=== PATIENT | female | born 1970 | race Caucasian/White ===

== ENCOUNTER → 2018-01-30 10:55 | Outpatient (CLI) | payer BC, SELFPAY ==
--- NOTE | 2018-01-30 10:58 | BI_ITS ---
MAMMOGRAPHY - BILATERAL SCREENING REASON FOR EXAM: Female, 47 years old. Routine annual screening examination. PERTINENT HISTORY: Non-contributory. TECHNIQUE: Digital bilateral breast kofi (3D mammographic acquisition) in the CC and MLO projections. 2-D mediolateral oblique (MLO) and craniocaudad (CC) views of both breasts were obtained. CAD: Full Field Digital Mammography with Computer Added Detection was performed. COMPARISON: Comparison is made with prior study dated November 10, 2016. FINDINGS: Breast Composition: The breasts are heterogeneously dense, which may obscure small masses. There are no dominant masses or suspicious calcifications. There now is evidence of a 6 mm well-defined nodule in the medial retroareolar region of the left breast. Correlation with ultrasound is recommended. No other significant abnormalities are identified. BI/SCREENING MAMM (CAD), BILAT IMPRESSION: 6 mm well-defined nodule in the left breast as described. Correlation with ultrasound is recommended. ASSESSMENT CATEGORY: BIRADS Category 0: Incomplete. Need additional imaging evaluation. A letter regarding these results will be sent to the patient by the facility within 30 days. Approximately 10% of breast cancers are not detected by mammography. A normal mammogram should not delay biopsy of a clinically suspicious abnormality. [id number] Electronically Signed: Josiah Garcia MD at 12:51 EDT Tel [phone], Service support ,
== END ==
PROVIDERS: Visit Provider Obstetrics & Gynecology
DX: Z12.31 Encounter for screening mammogram for malignant neoplasm of breast (principal)
CPT/HCPCS: 77063; 77067

== ENCOUNTER → 2018-02-01 10:29 | Outpatient (CLI) | payer BC, SELFPAY ==
--- NOTE | 2018-02-01 10:36 | US_ITS ---
STUDY: ULTRASOUND BREAST - LEFT REASON FOR EXAM: Female, 47 years old. Abnormal screening mammogram. TECHNIQUE: Axial and longitudinal images of the LEFT breast were performed with a high resolution ultrasound transducer. COMPARISON: Comparison is made with prior mammogram dated January 30, 2018. FINDINGS: LEFT Breast: The mammographic abnormality corresponds to 8 8 mm x 8 mm x 4 mm well-defined hypoechoic nodule at the 10:00 position in the breast at 1 cm from the nipple. This most likely represents a small lymph node. US/Breast Limited Unilateral IMPRESSION: The mammographic abnormality corresponds to a small benign-appearing lymph node. Routine mammographic follow-up is recommended. ASSESSMENT CATEGORY: BIRADS Category 2: Benign. A letter regarding these results will be sent to the patient by the facility within 30 days. Electronically Signed: Josiah Garcia MD at 11:57 EDT Tel [phone], Service support ,
== END ==
PROVIDERS: Visit Provider Obstetrics & Gynecology
DX: N63.42 Unspecified lump in left breast, subareolar (principal)
CPT/HCPCS: 76642

== ENCOUNTER 2020-02-09 13:57 | Emergency (ER) | payer BC, SELFPAY ==
[2020-02-09 13:58] VITALS: BP 129/81; PULSE 113; RESP 16; TEMP 36.2; O2SAT 100; BMI 20.5
[2020-02-09] MEDS: 0.9% Normal Saline 1,000 ML 1000 ML IV (14:22)
[2020-02-09 14:34] LABS: Red Blood Cells-Urine 0 SEEN /hpf (0-5)
[2020-02-09 14:34] LABS: Hematocrit 41.4 % (37-47); Hemoglobin 13.2 g/dL (12.0-15.0); Mean Corp Hgb Conc 31.9 g/dL (32-36); Mean Corpuscular Hgb 28.4 pg (27.0-32.0); Mean Corpuscular Volume 89.2 fL (81-99); Mean Platelet Vol. 9.5 fl (6.2-12.0); POSITIVE MORPHOLOGY YES; Platelet Count 536 K/mm3 (150-450); RBC Distribution Width CV 12.7 % (11.6-14.6); RBC Distribution Width SD 41.8 fl (35.1-43.9); Red Blood Count 4.64 M/mm3 (4.2-5.4)
[2020-02-09 14:35] LABS: Color, Urine Yellow (Yellow); Glucose, Dipstick Normal (Normal); Leukocyte Esterase-Dipstick Negative /ul (Negative); Nitrite-Dipstick Negative (Negative); Occult Blood-Urine 10 /ul (Negative); Protein-Dipstick 30 mg/dl (Negative); Specific Gravity, Urine 1.025 (1.002-1.030); Urine Bilirubin Dipstick Negative (Negative); Urine Clarity Sl. Cloudy (Clear); Urine Urobilinogen Normal (Normal)
[2020-02-09 14:49] LABS: Ketone-Dipstick 150 mg/dl (Negative)
[2020-02-09 14:50] LABS: ALB/GLOB Ratio 0.7 RATIO (0.9-2.4); AST(SGOT) 17 U/L (15-37); Alanine Aminotransfer ALT/SGPT 21 U/L (13-56); Alkaline Phosphatase 92 U/L (45-117); Anion Gap 12 (5-15); BUN 6 mg/dL (7-18); BUN/Creat Ratio 7.8 RATIO (10-20); Calcium,Total 8.9 mg/dL (8.5-10.1); Chloride 101 mmol/L (98-107); Creatinine, Serum 0.77 mg/dL (0.55-1.02); EST Glomerular Filtration Rate 85 mL/min (>60); Est Glom Filt Rate - Afr Amer 103 mL/min (>60); Estimated Creatinine Clearance 77.27 ml/min; Globulin 4.2 g/dL (2.2-4.2); Glucose 80 mg/dL (74-106); Potassium 3.8 mmol/L (3.5-5.1); Protein, Total 7.2 g/dL (6.4-8.2); Sodium Level 135 mmol/L (136-145)
[2020-02-09 14:52] LABS: Mucous, Urine 3+ /hpf (<or=2+); Squamous Epithelial Cells - UA 0-5 SEEN /hpf (5-10)
[2020-02-09 14:53] LABS: Bacteria 1+ /hpf (None Seen)
[2020-02-09 14:54] LABS: White Blood Cells 0-5 SEEN /hpf (0-5)
[2020-02-09 15:07] LABS: Differential Indicated MANUAL DIFF
[2020-02-09 15:08] LABS: Eosinophil 1 % (0-5); Lymphocyte 10 % (19-41); Monocyte 8 % (0-10); Neutrophil-Band 18 % (0-5); Neutrophil-Segmented 63 % (47-70); Total Cells Counted 100 (MANUAL DIFF)
[2020-02-09 15:09] LABS: Anisocytosis 1+; Platelet Estimate SLT INC (ADEQ)
[2020-02-09 15:11] LABS: Absolute Neutrophil Count 11.3 X10^3/uL (2.0-7.7); Neutrophil # 11.34 X10^3/uL (2.7-7.7)
--- NOTE | 2020-02-09 15:29 | ED.DCSUM_ITS ---
History of Present Illness Chief Complaint: Diarrhea Informant: Patient - Abdominal Pain/Flank Pain Onset: Days - 5 days Context: Gradual Onset Timing: Intermittent Quality: Cramping Location: Diffuse Current Severity: Mild Maximum Severity: Mild Worsened by: Food Relieved by: Remaining Still - Nausea/Vomiting/Emesis GI Symptom: Nausea. Negative for: Vomiting Quality: Negative for: Nonbilious, Blood streaks, Coffee ground, Hematemesis - Diarrhea/Melena/Hematochezia GI Symptom: Diarrhea Stool Quality: Loose, Watery. Negative for: Mucous, Black, Maroon, RAHUL per rectum Severity: Severe Associated Symptoms: Negative for: Dysuria, Frequency, Hematuria, Urgency Narrative: 49-year-old female with a history of lymphocytic colitis presents to the emergency department with abdominal pain and diarrhea. Patient states that she had stopped her medicine for her colitis about 5 days ago and has progressively developed some abdominal cramping and diarrhea. She called her transportation planner yesterday who told her to restart the medication. She comes in today with concern for dehydration. No fevers. No vomiting. No melena or hematochezia. He has been urinating normally. She has been able to eat and drink. She denies any other review of systems. She denies any upper respiratory symptoms. She has not had a fever. Prior similar symptoms: No Recent Illness/Hospitalization: No Past Medical History - Allergies and Home Meds Allergies/Adverse Reactions: Allergies thimerosal Adverse Reaction (Verified 02/09/20 13:59) Upset Stomach Primary Care Physician: Care Physician,No Primary [Primary Care Provider] - Prior records reviewed: Yes Past Medical History: - - Lymphocytic colitis Surgical History: no surgical history Lives: With Family Smoking Status: Former smoker Alcohol: Occasional Drugs: None Review of Systems All systems negative except as indicated General: Denies: Chills, Fever, Malaise Eyes: Denies: Visual changes - bilaterally, Blurred Vision - bilaterally, Diplopia ENT: Denies: Rhinorrhea, Sore throat Cardiovascular: Denies: Chest pain, Palpitations, Heart racing Respiratory: Denies: Dyspnea, Cough, Sputum, Dyspnea on exertion, Orthopnea Gastrointestinal: Reports: Abdominal pain, Nausea, Diarrhea. Denies: Vomiting, Constipation, Melena, Hematochezia Genitourinary: Denies: Dysuria, Hematuria, Frequency Musculoskeletal: Denies: Myalgias, Arthralgias, Neck pain, Back pain, - Skin: Denies: Rash, Abscess, Abrasions, Wounds Neurological: Denies: Headache, Weakness, Parasthesia Psych: Denies: Depression, Anxiety Physical Exam Vital Signs/Narrative: Vital Signs Temp Pulse Resp BP Pulse Ox 02/09/20 13:58 97.2 F L 113 H 16 129/81 H 100 Inital Vital Signs reviewed: Yes General: Well nourished, Well developed, No Acute Distress Head: Normocephalic, Atraumatic Eyes: Perrl, EOMI ENT: Moist mucous membranes Neck: Supple, Nontender, No lymphadenopathy, No JVD Cardiovascular: Regular rate, Regular rhythm, No murmurs Respiratory: CTA bilaterally, Chest nontender Abdomen: Soft, Nontender, Nondistended, Normal bowel sounds, No masses Back: Nontender, Normal Inspection. Negative for: CVA tenderness Extremities: Nontender, No edema. Negative for: Tenderness, Edema Skin: Normal color, No rash, No Trauma Neurological: Alert, Oriented x3 Psychological: Normal affect, Normal Mood Diagnostic/Tx/Re-eval - Medical Decision Making Patient presents to the emergency department with abdominal pain and diarrhea with concern for dehydration. Her vital signs are stable. We gave her IV fluids. She declined any analgesia or antiemetics. Laboratory work-up was remarkable for white blood cell count of 14. CMP was unremarkable. Urinalysis showed no infection but 150 ketones. Repeat exam patient feels well. She is tolerating by mouth. Repeat abdominal exam soft nontender. Patient will be discharged home. She states that she had already spoken with her transportation planner this morning who told her to continue her medicine. If she develops worsening symptoms she will return otherwise follow-up as directed. I will prescribe her Zofran. Laboratory Results 02/09/20 02/09/20 02/09/20 14:15 14:15 14:30 WBC 14.0 H RBC 4.64 Hgb 13.2 Hct 41.4 MCV 89.2 MCH 28.4 MCHC 31.9 L RDW Std Deviation 41.8 RDW Coeff of Stuart 12.7 Plt Count 536 H MPV 9.5 Neut % (Auto) Not Reportable Absolute Neuts (auto) 11.3 H Absolute Lymphs (auto) 1.40 Total Counted 100 Neutrophils % (Manual) 63 Band Neutrophils % 18 H Lymphocytes % (Manual) 10 L Monocytes % (Manual) 8 Eosinophils % (Manual) 1 Platelet Estimate SLT INC Anisocytosis 1+ Sodium 135 L Potassium 3.8 Chloride 101 Carbon Dioxide 22.0 Anion Gap 12 BUN 6 L Creatinine 0.77 Estim Creat Clear Calc 77.27 Est GFR (MDRD) Af Amer 103 Est GFR (MDRD) Non-Af 85 BUN/Creatinine Ratio 7.8 L Glucose 80 Calcium 8.9 Total Bilirubin 0.50 AST 17 ALT 21 Alkaline Phosphatase 92 Total Protein 7.2 Albumin 3.0 L Globulin 4.2 Albumin/Globulin Ratio 0.7 L Urine Color Yellow Urine Clarity Sl. Cloudy Urine pH 5.0 Ur Specific Jarales 1.025 Urine Protein 30 H Urine Glucose (UA) Normal Urine Ketones 150 H Urine Occult Blood 10 H Urine Nitrite Negative Urine Bilirubin Negative Urine Urobilinogen Normal Ur Leukocyte Esterase Negative Urine RBC 0 SEEN Urine WBC 0-5 SEEN Ur Squamous Epith Cells 0-5 SEEN Urine Bacteria 1+ Urine Mucus 3+ ED Disposition - Plan for ED Patient: Disposition: Home or Assisted Living Diagnosis: Diarrhea, Lymphocytic colitis Instructions: ED Diarrhea Viral Prescriptions: Ondansetron [Zofran Odt] 4 mg PO Q8H PRN PRN #10 tab PRN Reason: Nausea Prescription Printed Referrals: Torin Freedman MD [STAFF PHYSICIAN] - 3-5 Days
[2020-02-09] MEDS: 0.9% Normal Saline 1,000 ML 999 ML IV (15:35)
[2020-02-09 16:28] VITALS: BP 102/76; PULSE 85; RESP 16; O2SAT 99
== END 2020-02-09 16:57 | disposition home or self-care (01) ==
PROVIDERS: Emergency Provider Physician Assistant Medical
DX: K52.832 Lymphocytic colitis (principal); R19.7 Diarrhea, unspecified; Z87.891 Personal history of nicotine dependence
CPT/HCPCS: 80053; 81001; 85025; 96360; 96361; 99283; J7030; A4216

== ENCOUNTER 2020-02-11 02:12 | Emergency (ER) | payer BC, SELFPAY ==
[2020-02-11 02:12] VITALS: BP 116/78; PULSE 102; RESP 15; TEMP 37.2; O2SAT 97; BMI 20.3
--- NOTE | 2020-02-11 02:31 | ED.VISSUMM ---
- ER Visit Summary Date of Service: 02/11/20 Chief Complaint: Diarrhea, Nausea and abdominal cramping History of Present Illness: The patient is a 49 F history of lymphocytic colitis. Patient for the last 1 to 2 weeks has been feeling well. For last week is had profuse diarrhea. No recent antibiotics. No recent hospitalization. She states that she uses a rectal suppository for colitis which she states does not seem to be working due to the amount of diarrhea she is having. Denies any hematemesis or melena. She has nausea but no vomiting. No fever. States she has lost weight over the last several weeks. She sees a robotic welding operator which she is already emailed and is awaiting a response for a different medication. She denies any dysuria. She is never had any abdominal surgeries besides a uterine ablation and colonoscopy. Physical Examination: Middle-aged female no acute distress. Vital signs are stable. Heart rate 102. Afebrile. H EENT exam unremarkable. Neck nontender. No lymphadenopathy. Lungs clear to auscultation bilaterally. Heart regular rhythm rate about 100 no murmur. Abdomen is soft. Nondistended. Normal bowel sounds. No peritoneal signs. No localizing tenderness both the right upper right lower quadrant unremarkable. No obvious hernias or masses. No signs of obstruction. Patient is moving all 4 extremities. Calves are nontender without edema. Neurologically she is awake and alert. Her back is nontender. Test Results: CBC shows white count of 10 previously was 14. Hemoglobin 13. No bands. Chemistries unremarkable gap 11. BUN of 5 and creatinine 0.5. Emergency Department Course and Treatment: Patient will be hydrated with a liter normal saline. Treated with Zofran for her nausea. Clinically her exam is benign. I will recheck her blood count and electrolytes. These were just done 2 days ago and her labs at that time were basically unremarkable. Repeat exam the patient is doing well at 4:06 AM. She and I discussed her lab results. And outpatient follow-up. Treatment Plan: I will write her an oral form of the mesalamine. And Bentyl for cramping. Follow-up with her robotic welding operator today. Disposition: Discharge Impression: Acute exacerbation of lymphocytic colitis Abdominal cramping with diarrhea This note was generated with [employer] dictation software. It may contain incorrect words, spelling, and punctuation that were not noted in review of the chart prior to signing ED Disposition - Plan for ED Patient: Referrals: Care Physician,No Primary [Primary Care Provider] -
[2020-02-11 02:35] LABS: Absolute Lymphocyte Count 1.15 X10^3/uL (0.83-4.51); Basophil# 0.04 X10^3/uL; Basophil% 0.4 % (0-1); Differential Indicated SCAN CRITERIA MET; Eosinophil# 0.16 X10^3/uL; Eosinophils% 1.5 % (0-5); Hematocrit 40.1 % (37-47); Hemoglobin 13.1 g/dL (12.0-15.0); Lymphocyte # 1.15 X10^3/ul (4.0); Lymphocyte % 10.8 % (19-41); Mean Corp Hgb Conc 32.7 g/dL (32-36); Mean Corpuscular Hgb 28.7 pg (27.0-32.0); Mean Corpuscular Volume 87.9 fL (81-99); Mean Platelet Vol. 8.9 fl (6.2-12.0); Monocyte# 1.28 X10^3/uL; NRBC Flagged by Analyzer 0 % (0-5); Neutrophil # 7.95 X10^3/uL (2.7-7.7); Neutrophil % 74.3 % (47-70); POSITIVE MORPHOLOGY YES; Platelet Count 529 K/mm3 (150-450); RBC Distribution Width CV 12.8 % (11.6-14.6); Red Blood Count 4.56 M/mm3 (4.2-5.4); White Blood Count 10.7 K/mm3 (4.4-11.0)
[2020-02-11] MEDS: 0.9% Normal Saline 1,000 ML 1000 ML IV (02:40)
[2020-02-11] MEDS: Ondansetron 4 MG/2 ML Vial IV (02:40)
[2020-02-11 02:46] LABS: Anion Gap 11 (5-15); BUN 5 mg/dL (7-18); BUN/Creat Ratio 8.7 RATIO (10-20); Calcium,Total 8.8 mg/dL (8.5-10.1); Chloride 108 mmol/L (98-107); Creatinine, Serum 0.58 mg/dL (0.55-1.02); EST Glomerular Filtration Rate 118 mL/min (>60); Est Glom Filt Rate - Afr Amer 143 mL/min (>60); Estimated Creatinine Clearance 101.67 ml/min; Glucose 87 mg/dL (74-106); Potassium 3.6 mmol/L (3.5-5.1); Sodium Level 138 mmol/L (136-145)
[2020-02-11 02:55] LABS: Differential Comment SCANNED; Reactive Lymphocyte 1+
--- NOTE | 2020-02-11 04:10 | ED.DEP ---
ED Disposition - Plan for ED Patient: Disposition: Home or Assisted Living Prescriptions: Dicyclomine HCl [Bentyl] 20 mg PO TIDAC #20 cap Prescription Printed Mesalamine 1.2 gm PO DAILY #20 tablet.dr Prescription Printed Referrals: Fernando Landeros MD [CONSULTING PHYSICIAN] - As soon as possible Additional Instructions: Bentyl as needed for abdominal cramping. Next Mesalamine daily as an oral tablet versus your prior rectal suppository. Plenty fluids and rest. Call and follow-up with your building performance specialist today if possible.
[2020-02-11 04:23] VITALS: BP 104/71; PULSE 68; RESP 17; O2SAT 99
== END 2020-02-11 04:25 | disposition home or self-care (01) ==
PROVIDERS: Emergency Provider Emergency Medicine
DX: K52.832 Lymphocytic colitis (principal); R19.7 Diarrhea, unspecified
CPT/HCPCS: 80048; 85025; 96361; 96374; 99283; J7030; A4216; J2405

== ENCOUNTER 2020-02-12 10:25 | Inpatient (IN) | payer BC, SELFPAY ==
[2020-02-11 02:12] VITALS: BMI 20.3
[2020-02-12] VITALS (8 sets, daily range): BP systolic 105–147; BP diastolic 71–88; PULSE 78–135; RESP 16–18; TEMP 36.4–36.7; O2SAT 94–100; BMI 19.6; BMI 20.2; BMI 20.3
--- NOTE | 2020-02-12 10:47 | CT_ITS ---
STUDY: CT ABDOMEN AND PELVIS WITH CONTRAST REASON FOR EXAM: Female, 49 years old. Diarrhea, abd PAIN RADIATION DOSAGE (If Supplied By Facility): CTDIvol = ( 7.79 ) mGy, DLP = ( 275.44 ) mGycm TECHNIQUE: Transaxial images were obtained from the dome of the diaphragm to the symphysis pubis with oral contrast. Oral and amp; IV Gastrografin and amp; 100mL Isovue-300 was administered. Sagittal and coronal images were reconstructed. Individualized dose optimization techniques were used for this CT. COMPARISON: None. FINDINGS: The visualized lung bases are unremarkable. The visualized portions of the heart are within normal limits. Normal liver. The gallbladder is mildly distended. Normal spleen. Normal pancreas. Normal bilateral adrenal glands. Normal right kidney. Normal left kidney. Minimal thickening of the left perinephric space. Normal visualized stomach. Normal small intestine. Diffuse circumferential wall thickening of the colon suggestive of a colitis. Moderate amount of fecal material is seen in the right hemicolon. Small lymph nodes are seen in the mesenteric fat in the right lower quadrant is suggestive of mesenteric adenitis. The appendix is visualized and appears normal. There is scattered atherosclerotic calcification of the abdominal aorta, without a demonstrated aneurysm. Normal inferior vena cava. Normal retroperitoneum. Normal urinary bladder. There is a small umbilical hernia containing fat. Normal osseous structures. CT/Abdomen/Pelvis WITH Contrast IMPRESSION: Findings in keeping with diffuse colitis. Mildly distended gallbladder. Electronically Signed: Josiah Garcia, at 12:58 EDT , Service support ,
--- NOTE | 2020-02-12 10:58 | ED.DCSUM_ITS ---
- ER Visit Summary Date of Service: 02/12/20 Chief Complaint: Diarrhea History of Present Illness: The patient is a 49 F presenting with diarrhea. Patient complains of profuse watery diarrhea which has been ongoing for the past 8 days. This is her third ER visit for this complaint. She denies blood in her stool. Denies nausea or vomiting. She has diffuse abdominal cramping. She states 2 weeks ago she stopped her mesalamine suppositories and the symptoms gradually started. She discussed this with her GI doctor, Dr. Landeros and he advised her to restart the mesalamine suppositories on 02/08. She states she was unable to hold the suppositories in. She presented to the ED on 02/08 and 02/10. She was prescribed oral mesalamine and Bentyl. She talked to her GI doctor yesterday who advised admission. She denies fever or other complaints. Physical Examination: Vitals are stable. Heart rate 135. Patient is afebrile. Alert no acute distress. HEENT exam is unremarkable. Neck is supple. Lungs are clear and equal bilaterally. Heart is regular and tachycardic Abdomen is soft mild diffuse tenderness with no guarding or rebound Extremities are unremarkable. Skin is warm and dry. Remainder of exam is unremarkable. Emergency Department Course and Treatment: Patient was given IV fluids, Zofran. CBC unremarkable other than platelet 569. Chemistry shows potassium 3.3, CO2 16. Urinalysis shows ketones, [address] abdomen pelvis was obtained and shows findings in keeping with diffuse colitis. Mildly distended gallbladder. Discussed with hospitalist for admission Disposition: Admission Impression: Colitis, diarrhea, dehydration This note was generated with [employer] dictation software. It may contain incorrect words, spelling, and punctuation that were not noted in review of the chart prior to signing ED Disposition - Plan for ED Patient: Referrals: Care Physician,No Primary [Primary Care Provider] -
[2020-02-12 11:15] LABS: White Blood Cells 0 SEEN /hpf (0-5)
[2020-02-12 11:20] LABS: Absolute Lymphocyte Count 1.17 X10^3/uL (0.83-4.51); Absolute Neutrophil Count 7.9 X10^3/uL (2.0-7.7); Basophil# 0.04 X10^3/uL; Basophil% 0.4 % (0-1); Eosinophil# 0.11 X10^3/uL; Hematocrit 38.5 % (37-47); Hemoglobin 12.8 g/dL (12.0-15.0); Lymphocyte # 1.17 X10^3/ul (4.0); Mean Corp Hgb Conc 33.2 g/dL (32-36); Mean Corpuscular Hgb 28.8 pg (27.0-32.0); Mean Corpuscular Volume 86.7 fL (81-99); Mean Platelet Vol. 9.1 fl (6.2-12.0); Monocyte# 1.33 X10^3/uL; Monocyte% 12.5 % (0-10); NRBC Flagged by Analyzer 0 % (0-5); Neutrophil # 7.85 X10^3/uL (2.7-7.7); Neutrophil % 73.6 % (47-70); POSITIVE MORPHOLOGY YES; Platelet Count 569 K/mm3 (150-450); RBC Distribution Width CV 13.1 % (11.6-14.6); RBC Distribution Width SD 40.9 fl (35.1-43.9); Red Blood Count 4.44 M/mm3 (4.2-5.4); White Blood Count 10.7 K/mm3 (4.4-11.0)
[2020-02-12 11:21] LABS: Color, Urine Yellow (Yellow); Glucose, Dipstick Normal (Normal); Leukocyte Esterase-Dipstick Negative /ul (Negative); Nitrite-Dipstick Negative (Negative); Occult Blood-Urine 25 /ul (Negative); Protein-Dipstick 30 mg/dl (Negative); Specific Gravity, Urine 1.025 (1.002-1.030); Urine Clarity Sl. Cloudy (Clear); Urine Urobilinogen 1 mg/dl (Normal)
[2020-02-12] MEDS: 0.9% Normal Saline 1,000 ML 1000 ML IV (11:21)
[2020-02-12] MEDS: Ondansetron 4 MG/2 ML Vial IV (11:21)
[2020-02-12 11:22] LABS: Urine Bilirubin Dipstick 1 mg/dL (Negative)
[2020-02-12 11:24] LABS: Differential Indicated SCAN CRITERIA MET; Ketone-Dipstick 150 mg/dl (Negative)
[2020-02-12 11:27] LABS: Bacteria 1+ /hpf (None Seen); Mucous, Urine 1+ /hpf (<or=2+); Red Blood Cells-Urine 0-5 SEEN /hpf (0-5); Squamous Epithelial Cells - UA 0-5 SEEN /hpf (5-10)
[2020-02-12 11:36] LABS: ALB/GLOB Ratio 0.6 RATIO (0.9-2.4); AST(SGOT) 23 U/L (15-37); Alanine Aminotransfer ALT/SGPT 28 U/L (13-56); Albumin, Serum 2.5 g/dL (3.2-5.0); Alkaline Phosphatase 84 U/L (45-117); Anion Gap 13 (5-15); BUN 5 mg/dL (7-18); BUN/Creat Ratio 9.8 RATIO (10-20); Calcium,Total 8.6 mg/dL (8.5-10.1); Chloride 108 mmol/L (98-107); Creatinine, Serum 0.51 mg/dL (0.55-1.02); EST Glomerular Filtration Rate 136 mL/min (>60); Est Glom Filt Rate - Afr Amer 164 mL/min (>60); Estimated Creatinine Clearance 111.51 ml/min; Globulin 4.1 g/dL (2.2-4.2); Glucose 91 mg/dL (74-106); Potassium 3.3 mmol/L (3.5-5.1); Protein, Total 6.6 g/dL (6.4-8.2); Sodium Level 137 mmol/L (136-145)
[2020-02-12 11:40] LABS: Differential Comment SCANNED
--- NOTE | 2020-02-12 12:43 | PCM.HP.STD ---
Problem List (1) Colitis Status: Acute (2) Lymphocytic colitis Status: Chronic (3) Menorrhagia Status: Resolved (4) Postmenopausal Status: Chronic History of Present Illness Date of Admission: 02/12/20 Chief Complaint: Abdominal pain, cramping, watery diarrhea The patient is a 49 y/o F w/ PMHx: Hx Lymphocytic colitis with rectal involvement, History of Menorrhagia s/p ablation with symptomatic menopause otherwise healthy with history of recent presentation x 3 now (02/08, 02/10, 02/11) with now -representation to the [facility] ED on 02/12/20 with ongoing severe 10/10 abdominal pain and loose stools (watery in appearance), diffuse, cramping, intermittent, worsened with oral intake attempts with nausea without emesis now x 8 days, improved with rest and avoidance of intake, with review of evaluations with no fevers, mild tachycardia on 02/08 and 02/10 visits, worsening on current day of presentation, 02/09/20 CBC w/ WBC 14 with L shift, 02/10 CBC w/ WBC 10.7 with L shift, mildly improved, stable BMP without marked electrolyte disturbance, UA 02/10/20 with evidence dehydration. She denied any fever, chills, headache, body aches, rhinnorrhea or congestion in association. Prior ED evaluation with recommended follow-up with Dr. Landeros. Current ED evaluation with work-up included T 97.9, heart rate 135, BP 119/88, respiratory rate 18, 98% on room air, CBC with WC 10.7, hemoglobin 12.8, platelet 569 with ongoing left shift with mild lymphopenia noted but absolute normal, CMP potassium 3.3, chloride 108, carbon oxide 16, BUN/creatinine 5/0.51, glucose 91 otherwise hepatic profile unremarkable, repeat urinalysis with elevated specific raphe 1.025, protein 30, ketones 150, occult blood 25, 0 urine WBCs, 1+ bacteria, enteric bacteria as well as C. difficile stool pending, CT A/P with diffuse colitis with a mildly distended gallbladder but no specific right upper quadrant complaints. In the ED patient ministered normal saline and Zofran therapy. Past Medical History Past Medical History (Chronic Problems): Chronic Problems Lymphocytic colitis (Chronic) Postmenopausal (Chronic) Allergies thimerosal Adverse Reaction (Verified 02/12/20 10:27) Upset Stomach Home Medications: Ambulatory Orders Medication Instructions Recorded Estradiol 1 mg PO DAILY 02/09/20 Ondansetron [Zofran Odt] 4 mg PO Q8H PRN PRN #10 tab 02/09/20 Dicyclomine HCl [Bentyl] 20 mg PO TIDAC #20 cap 02/11/20 Mesalamine 1.2 gm PO DAILY #20 tablet. 02/11/20 Surgical History: - - Uterine ablation, T+A. Psychiatric History: No pertinent psych hx OPEN WINDER History: No pertinent OPEN WINDER history Lives: Spouse/ Significant Other, With Family Smoking Status: Former smoker - Quit cigarette tobacco usage approximately 20 years prior to current presentation with prior to this 1 pack/day since she was 17 years old. Tobacco Use: Non-smoker Alcohol: Occasional Drugs: None - *Family History Maternal History Items: - - Patient notes maternal family history of cancer, brain tumor, unclear type. Paternal History Items: - - Patient notes paternal family history of hypertension. Review of Systems Constitutional: Reports: Anorexia, Malaise, Weakness, Weight Change, Fatigue. Denies: Chills, Fever HEENT: Denies: Head Aches, Sinus Congestion, Sinus Drainage Cardiovascular: Denies: Chest Pain, Palpitations Respiratory: Denies: Cough, Shortness of breath at rest, Sputum production Gastrointestinal: Reports: Abdominal Pain, Diarrhea, Nausea. Denies: Vomiting Genitourinary: Denies: Dysuria Musculoskeletal: Denies: Joint Pain, Joint Tenderness Skin: Denies: Rash, Wounds Neurological: Denies: Numbness, Tingling, Focal weakness Psychiatric: Denies: Anxiety, Depression, Homicidal Ideations, Suicidal Ideations Hematologic/ Lymphatic: Denies: Easy Bruising, Easy Bleeding VTE Information - Inpt Only VTE Present on Admission: No VTE Mechan Device Prophylaxis: None VTE Pharm Prophylaxis ordered?: No Reason prophylaxis not ordered:: Treatment Not Indicated Patient Problems: Active and Suspected Problems Colitis (Acute) Subjective: Patient laying in the ED bed, uncomfortable appearing, tearful. Objective: Physical Examination: General: awake, alert, oriented x 3 and cooperative, laying in the ED bed, uncomfortable appearing, tearful during discussions. Skin: normal color, turgor, no icterus, cyanosis. HEENT: AT/NC, EOMI, PERRLA, dry MM, no carotid bruits or JVD noted. Lungs: CTA bilaterally, moderate effort, no rales, ronchi or wheezing. Heart: Mildly tachycardic with regular rhythm; no gallop, rub audible. Abdomen: soft, mild generalized discomfort but no rebound or guarding, minimal distention, hyperactive bowel sounds, no obvious HSM. Extremities: no cyanosis, clubbing, or edema. Neurological: patient awake, alert, oriented x 3; cognitive function intact; pupils equally reactive to light and accomodation; cranial nerves II-XII grossly normal, moving all 4 extremities, no focal deficits, strength globally decreased secondary to acute presentation. Psychiatric: affect appears fatigued, uncomfortable, stressed, no acute evidence of depressive feelings. - Physical Exam Vitals/I&O's: Vital Signs Temp Pulse Resp BP Pulse Ox 97.9 F 135 H 18 119/88 H 98 02/12/20 10:26 02/12/20 10:26 02/12/20 10:26 02/12/20 10:26 02/12/20 10:26 Oxygen Delivery Method Room Air Weight: 118 lb Body Mass Index (BMI) 19.6 Laboratory Results 02/12/20 11:00: WBC 10.7, RBC 4.44, Hgb 12.8, Hct 38.5, MCV 86.7, MCH 28.8, MCHC 33.2, RDW Std Deviation 40.9, RDW Coeff of Stuart 13.1, Plt Count 569 H, MPV 9.1, Immature Gran % (Auto) 1.500 H, Neut % (Auto) 73.6 H, Lymph % (Auto) 11.0 L, [place] % (Auto) 12.5 H, Eos % (Auto) 1.0, Baso % (Auto) 0.4, Absolute Neuts (auto) 7.9 H, Absolute Lymphs (auto) 1.17, Nucleated RBC % 0, Differential Comment SCANNED 02/12/20 11:00: Sodium 137, Potassium 3.3 L, Chloride 108 H, Carbon Dioxide 16.0 L, Anion Gap 13, BUN 5 L, Creatinine 0.51 L, Estim Creat Clear Calc 111.51, Est GFR (MDRD) Af Amer 164, Est GFR (MDRD) Non-Af 136, BUN/Creatinine Ratio 9.8 L, Glucose 91, Calcium 8.6, Total Bilirubin 0.40, AST 23, ALT 28, Alkaline Phosphatase 84, Total Protein 6.6, Albumin 2.5 L, Globulin 4.1, Albumin/Globulin Ratio 0.6 L 02/12/20 11:00: Urine Color Yellow, Urine Clarity Sl. Cloudy, Urine pH 6.0, Ur Specific [place] 1.025, Urine Protein 30 H, Urine Glucose (UA) Normal, Urine Ketones 150 H, Urine Occult Blood 25 H, Urine Nitrite Negative, Urine Bilirubin 1 H, Urine Urobilinogen 1 H, Ur Leukocyte Esterase Negative, Urine RBC 0-5 SEEN, Urine WBC 0 SEEN, Ur Squamous Epith Cells 0-5 SEEN, Urine Bacteria 1+, Urine Mucus 1+ Assessment/Plan All Active Problems Colitis (Acute) Menorrhagia (Resolved) The patient is a 49 y/o F w/ PMHx: Hx Lymphocytic colitis with rectal involvement, History of Menorrhagia s/p ablation with symptomatic menopause otherwise healthy with history of recent presentation x 3 now (02/08, 02/10, 02/11) with now -representation to the [facility] ED on 02/12/20 with ongoing severe 10/10 abdominal pain and loose stools (watery in appearance), diffuse, cramping, intermittent, worsened with oral intake attempts with nausea without emesis now x 8 days. 1. Acute Intractable Abdominal Pain, Diarrhea suspected secondary to Possible Infectious Colitis versus Acute on Chronic Atypical Lymphocytic Colitis versus Irritable Bowel Disease: Given ongoing severity of symptoms and intractable pain with ongoing diarrhea, failed outpatient management with a repeat ED visit now x [address] scan with diffuse colitis evident which is not been present prior and per discussions with GI physician atypical for lymphocytic colitis presentation and her previous history of rectal involvement concurrently, will admit to the medical surgical floor, continue aggressive hydration given GI losses, will initiate on Zosyn therapy however if enteric pathogen is negative with current C. difficile negative would plan to de-escalate off antibiotic therapy and start IV Solu-Medrol, will start on budesonide (per patient preference) and add cholestyramine as well, addition if negative enteric pathogen would plan usage of loperamide concurrently. Discussed case at length with patient's GI physician, Dr. Landeros who agreed atypical and at this time plan of care would be to await enteric pathogen, if negative de-escalate off antibiotic therapy and start IV Solu-Medrol with transition once appropriate for discharge to 40 mg prednisone daily x2 weeks with no taper with plan to follow-up with him in his office and he will attempt to initiate early follow-up however if positive would continue antibiotic appropriate therapies and defer antidiarrheal medicine as well as steroids. Will allow clears, maintain on PRN antiemetics, PRN oral and IV pain regimen, close I&O monitoring. 2. Hypokalemia: Admission K+ 3.3, magnesium level requested, supplementation given, repeat level in AM. 3. GI prophylaxis: Protonix. 4. DVT Prophylaxis: SCDs, low risk. OBSV E&M: 05466 Initial observation care L3
--- NOTE | 2020-02-12 13:00 | ED.RN ---
Pt requests and gien permission by Dr Mcmullen to take own Dicyclomine 20mg. RN is aware.
--- NOTE | 2020-02-12 13:10 | NURSING ---
MED SURG INTRACTABLE ABD PAIN, DIARRHEA, RECURRENT LYMPHOCYTIC COLITIS WHITE
--- NOTE | 2020-02-12 14:25 | NURSING ---
does not take vaccines
[2020-02-12] MEDS: 0.9% Normal Saline 1,000 ML 999 ML IV (14:42)
[2020-02-12 15:12] LABS: Magnesium 1.8 mg/dL (1.6-2.6); Phosphorus 2.3 mg/dL (2.5-4.9)
--- NOTE | 2020-02-12 15:36 | PCM.NTREPORT ---
Nutrition Therapy Report - History Current diet / nutrition support order:: clear liquids - Anthropometric Measurements Height:: 5 ft 5 in Weight:: 55.2 kg Body Mass Index (BMI):: 20.2 - Relevant Labs Relevant Labs:: Plt Count 569 K/mm3 (150-450) H 02/12/20 11:00 Immature Gran % (Auto) 1.500 % (0.0-0.9) H 02/12/20 11:00 Neut % (Auto) 73.6 % (47-70) H 02/12/20 11:00 Lymph % (Auto) 11.0 % (19-41) L 02/12/20 11:00 [place] % (Auto) 12.5 % (0-10) H 02/12/20 11:00 Absolute Neuts (auto) 7.9 X10^3/uL (2.0-7.7) H 02/12/20 11:00 Potassium 3.3 mmol/L (3.5-5.1) L 02/12/20 11:00 Chloride 108 mmol/L (98-107) H 02/12/20 11:00 Carbon Dioxide 16.0 mmol/L (21.0-32.0) L 02/12/20 11:00 BUN 5 mg/dL (7-18) L 02/12/20 11:00 Creatinine 0.51 mg/dL (0.55-1.02) L 02/12/20 11:00 BUN/Creatinine Ratio 9.8 RATIO (10-20) L 02/12/20 11:00 Phosphorus 2.3 mg/dL (2.5-4.9) L 02/12/20 11:00 Albumin 2.5 g/dL (3.2-5.0) L 02/12/20 11:00 Albumin/Globulin Ratio 0.6 RATIO (0.9-2.4) L 02/12/20 11:00 - Assessment Food / Nutrition-Related History:: Pt reports ongoing diarrhea for past 8 days. States appetite/intake was poor over 2 weeks d/t GI discomfort. UBW ~140# per pt. CBW 121.7#-13% wt loss, significant for malnutrition. Reports not tolerating much PO at home. Has [employer] medical shake mix at home which she uses as a protein drink. Unclear amount of protein/shake. Tries to follow a gluten free, fructose free diet. Follows w/ GI specialist for diet/disease management. - Nutrition Diagnosis Problem / Etiology / Signs & Symptoms (PES):: Inadequate oral intake r/t diarrhea, suspected recurrent lymphocytic colitis as evidenced by PO intake <50% of estimated nutritional needs for 5 days [employer], wt loss of ~18# x 2 weeks. Evidence of Malnutrition Exists:: Yes Severe PCM:: Acute Illness - Nutrition Intervention Nutrition Prescription:: [id number] calories/day, 50-60 g protein/day; gluten free diet - Food / Nutrient Delivery Interventions Summary of nutrition intervention:: Discussed ONS options- does not want to try ensure clear at this time, contains corn maltodextrin and pt believes that would exacerbate symptoms. Reviewed clear liquid diet options, agreeable to trying other fluids at this time. Signs/symptoms of acute malnutrition identifed- if unable to achieve adequate oral/enteral nutrition in 3-5 days, would be appropriate to consider parenteral nutrition support. Nutrition support ordered as / adjusted to:: continue clear liquids as ordered; advance as tolerated to regular, gluten free. Nutrition education provided?: No - MNT Monitoring Further MNT monitoring and evaluation required?: Yes MNT Follow-up in:: 3-5 days - Signs/symptoms of acute malnutrition identifed- if unable to achieve adequate oral/enteral nutrition in 3-5 days, would be appropriate to consider parenteral nutrition support.
[2020-02-12] MEDS: 0.9% Normal Saline 1,000 ML 150 ML IV ×2 (15:52→21:52)
[2020-02-12] MEDS: Budesonide 3 MG CAPSULE.EC 9 MG PO (16:01)
[2020-02-12] MEDS: Dicyclomine 10 MG Capsule 20 MG PO (16:02)
[2020-02-12] MEDS: Cholestyramine/Sucrose 4 GM/PACKET PO ×2 (16:02→23:14)
[2020-02-12] MEDS: Loperamide 2 MG Capsule PO ×2 (16:02→21:46)
[2020-02-12] MEDS: Acetaminophen 325 MG Tablet 650 MG PO (21:45)
[2020-02-12] MEDS: Pantoprazole Sodium 20 MG Tablet PO (21:46)
[2020-02-12] MEDS: 0.9% Saline Lock 10 ML Syringe IV (21:46)
[2020-02-13] MEDS: Loperamide 2 MG Capsule PO ×2 (02:15→06:18)
[2020-02-13 03:40] VITALS: BP 101/70; PULSE 75; RESP 18; TEMP 36.5; O2SAT 97
[2020-02-13] MEDS: 0.9% Normal Saline 1,000 ML 150 ML IV ×4 (04:10→23:51)
[2020-02-13 06:01] LABS: Absolute Lymphocyte Count 0.67 X10^3/uL (0.83-4.51); Absolute Neutrophil Count 7.8 X10^3/uL (2.0-7.7); Basophil# 0.05 X10^3/uL; Basophil% 0.6 % (0-1); Hematocrit 34.9 % (37-47); Hemoglobin 11.3 g/dL (12.0-15.0); Lymphocyte # 0.67 X10^3/ul (4.0); Lymphocyte % 7.6 % (19-41); Mean Corp Hgb Conc 32.4 g/dL (32-36); Mean Corpuscular Hgb 28.3 pg (27.0-32.0); Mean Corpuscular Volume 87.5 fL (81-99); Monocyte# 0.21 X10^3/uL; Monocyte% 2.4 % (0-10); NRBC Flagged by Analyzer 0 % (0-5); Neutrophil # 7.76 X10^3/uL (2.7-7.7); Neutrophil % 87.6 % (47-70); POSITIVE MORPHOLOGY YES; Platelet Count 520 K/mm3 (150-450); RBC Distribution Width CV 13.4 % (11.6-14.6); RBC Distribution Width SD 42.8 fl (35.1-43.9); Red Blood Count 3.99 M/mm3 (4.2-5.4); White Blood Count 8.9 K/mm3 (4.4-11.0)
[2020-02-13 06:11] LABS: ALB/GLOB Ratio 0.6 RATIO (0.9-2.4); AST(SGOT) 17 U/L (15-37); Alanine Aminotransfer ALT/SGPT 29 U/L (13-56); Albumin, Serum 2.1 g/dL (3.2-5.0); Alkaline Phosphatase 74 U/L (45-117); Anion Gap 9 (5-15); BUN 5 mg/dL (7-18); BUN/Creat Ratio 11.6 RATIO (10-20); Calcium,Total 8.3 mg/dL (8.5-10.1); Chloride 114 mmol/L (98-107); Creatinine, Serum 0.43 mg/dL (0.55-1.02); EST Glomerular Filtration Rate 165 mL/min (>60); Est Glom Filt Rate - Afr Amer 199 mL/min (>60); Globulin 3.6 g/dL (2.2-4.2); Glucose 126 mg/dL (74-106); Potassium 4.1 mmol/L (3.5-5.1); Protein, Total 5.7 g/dL (6.4-8.2); Sodium Level 143 mmol/L (136-145)
[2020-02-13] MEDS: Dicyclomine 10 MG Capsule 20 MG PO ×3 (06:18→17:36)
[2020-02-13 06:52] LABS: Differential Indicated SCAN CRITERIA MET
--- NOTE | 2020-02-13 07:13 | PN_ITS ---
Patient Problems: Active and Suspected Problems Colitis (Acute) Subjective: Patient with significant improvement from day prior with no bowel movements since initiation of aggressive regimen, less in abdominal discomfort and cramping as well as decreased nausea with oral intake improvement and request to transition to potentially soft eggs and a banana. She notes that she does maintain a gluten-free and dairy free diet not specifically because of a documented allergy but because of mild intolerance. D[facility] would include initiation of more aggressive oral intake to ascertain if able to tolerate and continued observation of bowel regimen with de-escalation off of scheduled cholestyramine and scheduled loperamide with transition to PRN. Patient denies fevers, chills, emesis, chest pain or dyspnea. Objective: Physical Examination: General: awake, alert, oriented x 3 and cooperative, seated upright in bed in no apparent distress, much more comfortable appearing than admission. Skin: normal color, turgor, no icterus, cyanosis. HEENT: AT/NC, EOMI, PERRLA, improved MMM. Lungs: CTA bilaterally, moderate effort, mild decrease BL bases, no rales, ronchi or wheezing. Heart: Regular rate and rhythm; no gallop, rub audible. Abdomen: soft, mild generalized discomfort, no rebound or guarding, mildly distended, normalizing BS. Extremities: no cyanosis, clubbing, or edema. Neurological: patient awake, alert, oriented x 3; cognitive function intact; pupils equally reactive to light and accomodation; cranial nerves II-XII grossly normal, moving all 4 extremities, no focal deficits, strength improving, mildly to moderately globally decreased secondary to acute presentation. Psychiatric: affect appears improved, comfortable, less anxious, no acute evidence of depressive or anxiety feelings. Vitals/I&O's: Vital Signs Temp Pulse Resp BP Pulse Ox 97.7 F L 75 18 101/70 97 02/13/20 03:40 02/13/20 03:40 02/13/20 03:40 02/13/20 03:40 02/13/20 03:40 Oxygen Delivery Method Room Air Weight: 121 lb 11.123 oz Body Mass Index (BMI) 20.2 Intake and Output for Last 24 Hours 02/11/20 02/12/20 02/13/20 23:59 23:59 23:59 Intake Total 3050 / 3050 945 / 945 Output Total 1250 / 1250 900 / 900 Balance 1800 / 1800 45 / 45 Microbiology Past 72 Hours 02/12/20 11:22 Stool Enteric Bacteriology - Final 02/12/20 11:22 Stool C. difficile DNA Amplification - Final Laboratory Results 02/12/20 11:00: WBC 10.7, RBC 4.44, Hgb 12.8, Hct 38.5, MCV 86.7, MCH 28.8, MCHC 33.2, RDW Std Deviation 40.9, RDW Coeff of Stuart 13.1, Plt Count 569 H, MPV 9.1, Immature Gran % (Auto) 1.500 H, Neut % (Auto) 73.6 H, Lymph % (Auto) 11.0 L, [place] % (Auto) 12.5 H, Eos % (Auto) 1.0, Baso % (Auto) 0.4, Absolute Neuts (auto) 7.9 H, Absolute Lymphs (auto) 1.17, Nucleated RBC % 0, Differential Comment SCANNED 02/12/20 11:00: Sodium 137, Potassium 3.3 L, Chloride 108 H, Carbon Dioxide 16.0 L, Anion Gap 13, BUN 5 L, Creatinine 0.51 L, Estim Creat Clear Calc 111.51, Est GFR (MDRD) Af Amer 164, Est GFR (MDRD) Non-Af 136, BUN/Creatinine Ratio 9.8 L, Glucose 91, Calcium 8.6, Total Bilirubin 0.40, AST 23, ALT 28, Alkaline Phosphatase 84, Total Protein 6.6, Albumin 2.5 L, Globulin 4.1, Albumin/Globulin Ratio 0.6 L 02/12/20 11:00: Urine Color Yellow, Urine Clarity Sl. Cloudy, Urine pH 6.0, Ur Specific [place] 1.025, Urine Protein 30 H, Urine Glucose (UA) Normal, Urine Ketones 150 H, Urine Occult Blood 25 H, Urine Nitrite Negative, Urine Bilirubin 1 H, Urine Urobilinogen 1 H, Ur Leukocyte Esterase Negative, Urine RBC 0-5 SEEN, Urine WBC 0 SEEN, Ur Squamous Epith Cells 0-5 SEEN, Urine Bacteria 1+, Urine Mucus 1+ 02/12/20 11:00: Phosphorus 2.3 L, Magnesium 1.8 02/13/20 05:26: WBC 8.9, RBC 3.99 L, Hgb 11.3 L, Hct 34.9 L, MCV 87.5, MCH 28.3, MCHC 32.4, RDW Std Deviation 42.8, RDW Coeff of Stuart 13.4, Plt Count 520 H, MPV 9.0, Immature Gran % (Auto) 1.800 H, Neut % (Auto) 87.6 H, Lymph % (Auto) 7.6 L, [place] % (Auto) 2.4, Eos % (Auto) 0.0, Baso % (Auto) 0.6, Absolute Neuts (auto) 7.8 H, Absolute Lymphs (auto) 0.67 L, Nucleated RBC % 0 02/13/20 05:26: Sodium 143, Potassium 4.1, Chloride 114 H, Carbon Dioxide 20.0 L , Anion Gap 9, BUN 5 L, Creatinine 0.43 L, Estim Creat Clear Calc 136.40, Est GFR (MDRD) Af Amer 199, Est GFR (MDRD) Non-Af 165, BUN/Creatinine Ratio 11.6, Glucose 126 H, Calcium 8.3 L, Total Bilirubin 0.20, AST 17, ALT 29, Alkaline Phosphatase 74, Total Protein 5.7 L, Albumin 2.1 L, Globulin 3.6, Albumin/Globulin Ratio 0.6 L Current Medications Acetaminophen (Tylenol) 650 mg PO Q6H PRN PRN PRN Reason: Pain Score 1-10/Temp > 100.7 F Last Admin: 02/12/20 21:45 Dose: 325 mg Documented by: Al Hydroxide/Mg Hydroxide (Mylanta Ii) 30 ml PO Q6H PRN PRN PRN Reason: Gastric Burning Albuterol Sulfate (Ventolin Aerosols) 2.5 mg INHALATION Q2H PRN PRN PRN Reason: Shortness of Breath/Wheezing Budesonide (Budesonide Ec) 9 mg PO DAILY COUNTS INCLUDE 234 BEDS AT THE [facility] Last Admin: 02/12/20 16:01 Dose: 9 mg Documented by: Cholestyramine Resin (Questran 4gm Packet) 4 gm PO Q6 COUNTS INCLUDE 234 BEDS AT THE [facility] Last Admin: 02/12/20 23:14 Dose: 4 gm Documented by: Dextrose (D50w Syringe) 0 gm IV X1 PRN; Protocol PRN Reason: Hypoglycemia Dicyclomine HCl (Bentyl) 20 mg PO TIDAC COUNTS INCLUDE 234 BEDS AT THE [facility] Last Admin: 02/13/20 06:18 Dose: 20 mg Documented by: Estradiol (Estrace (G)) 1 mg PO DAILY@2200 COUNTS INCLUDE 234 BEDS AT THE [facility] Glucagon () 1 mg IM .X1 PRN PRN Reason: Hypoglycemia Guaifenesin (Robitussin) 20 ml PO Q4H PRN PRN PRN Reason: COUGH Hydralazine HCl (Apresoline Iv) 10 mg IV Q4H PRN PRN PRN Reason: SBP > 160 Sodium Chloride () 1,000 mls @ 150 mls/hr IV .Q6H40M COUNTS INCLUDE 234 BEDS AT THE [facility] Last Admin: 02/13/20 04:10 Dose: 150 mls/hr Documented by: Lactobacillus Acidophilus (Acidophilus) 1 tablet PO TID COUNTS INCLUDE 234 BEDS AT THE [facility] Last Admin: 02/13/20 06:18 Dose: 1 tablet Documented by: Methylprednisolone (Solu-Medrol) 40 mg IV Q8 COUNTS INCLUDE 234 BEDS AT THE [facility] Last Admin: 02/13/20 06:18 Dose: 40 mg Documented by: Morphine Sulfate () 2 mg IV Q3H PRN PRN PRN Reason: Pain Score 6-10/10 Nutritional Formula (Lactose Free) (Ensure Clear) 120 ml PO 4X/DAY COUNTS INCLUDE 234 BEDS AT THE [facility] Last Admin: 02/12/20 21:46 Dose: Not Given Documented by: Ondansetron HCl (Zofran) 4 mg IV Q8H PRN PRN PRN Reason: NAUSEA/VOMITING Oxycodone HCl (Oxyir) 5 mg PO Q4H PRN PRN PRN Reason: Pain Score 4-5/10 Pantoprazole Sodium (Protonix) 20 mg PO BID COUNTS INCLUDE 234 BEDS AT THE [facility] Last Admin: 02/12/20 21:46 Dose: 20 mg Documented by: Prochlorperazine Edisylate (Compazine Iv) 5 mg IV Q4H PRN PRN PRN Reason: Breakthrough nausea/vomiting Sodium Chloride () 10 - 40 ml IV UD PRN PRN Reason: SALINE FLUSH Last Admin: 02/12/20 21:46 Dose: 10 ml Documented by: Temazepam (Restoril) 15 mg PO QHS PRN PRN PRN Reason: INSOMNIA Throat Lozenges (Cepacol Sore Throat Lozenge) 1 lozenge MUCOUS MEM Q2H PRN PRN PRN Reason: SORE THROAT STROKE Vital Signs/Narrative: Vital Signs Temp Pulse Resp BP Pulse Ox 02/13/20 03:40 97.7 F L 75 18 101/70 97 Medical Necessity - Tobacco Use Smoking Status: Former smoker - Quit cigarette tobacco usage approximately 20 years prior to current presentation with prior to this 1 pack/day since she was 17 years old. Tobacco Use: Non-smoker Assessment/Plan All Active Problems Colitis (Acute) Menorrhagia (Resolved) The patient is a 49 y/o F w/ PMHx: Hx Lymphocytic colitis with rectal involvement, History of Menorrhagia s/p ablation with symptomatic menopause otherwise healthy with history of recent presentation x 3 now (02/08, 02/10, 02/11) with now -representation to the [facility] ED on 02/12/20 with ongoing severe 10/10 abdominal pain and loose stools (watery in appearance), diffuse, cramping, intermittent, worsened with oral intake attempts with nausea without emesis now x 8 days. 1. Acute Intractable Abdominal Pain, Diarrhea suspected secondary to Possible Infectious Colitis versus Acute on Chronic Atypical Lymphocytic Colitis versus Irritable Bowel Disease: Given ongoing severity of symptoms and intractable pain with ongoing diarrhea, failed outpatient management with a repeat ED visit now x [address] scan with diffuse colitis evident which is not been present prior and per discussions with GI physician atypical for lymphocytic colitis presentation and her previous history of rectal involvement concurrently. Admitted to NC, aggressively hydrated, zosyn x 1 prior to negative enteric pathogens and negative c-diff assay, initiated and continued on solumedrol, budesonide per discussion with GI, Dr. Landeros and patient preference to transition from mesalamin, initially on scheduled loperamide, cholestyramine, lactobacillus with no BM since start, now will de-escalate to PRN loperamide, d/c cholestyramine and continue lactobacillus. Will advance diet and assure toleration as well as assure no recurrent profuse diarrhea. Would plan likely 02/13/30 discharge on 40 mg prednisone daily x2 weeks with no taper with plan to follow-up with Dr. Landeros in his office w/ specifically early follow-up. PRN antiemetics, PRN oral and IV pain regimen, close I&O monitoring. 2. Hypokalemia: Admission K+ 3.3, magnesium level 1.8, supplementation given, repeat level in 02/13/20 4.1, normalized. 3. GI prophylaxis: Protonix. 4. DVT Prophylaxis: SCDs, low risk. Updated Dr. Yun upon admission following plan of care discussion with GI. She will plan on establishing with him for PCP continued care and evaluation. Inpatient E&M: 03300 Subs Hosp L2
[2020-02-13 07:20] LABS: Differential Comment SCANNED
[2020-02-13] MEDS: Cholestyramine/Sucrose 4 GM/PACKET PO ×2 (07:30→23:51)
[2020-02-13 09:16] VITALS: O2SAT 96
[2020-02-13 09:40] VITALS: BP 120/79; PULSE 80; RESP 18; TEMP 36.4; O2SAT 93
[2020-02-13] MEDS: Budesonide 3 MG CAPSULE.EC 9 MG PO (10:49)
[2020-02-13] MEDS: Pantoprazole Sodium 20 MG Tablet PO ×2 (10:49→20:52)
--- NOTE | 2020-02-13 11:12 | CASEMGMT ---
SHAWN YOUNG Assessment: Face to Face with patient for initial transition planning/care coordination assessment. SHAWN YOUNG introduced self and role at [facility], pt voices understanding and consents to assessment at this time. Pt is sitting up in bed in no distress at this time. Pt is A/Ox4 at this time and answers all questions appropriately at this time. Care providers, pharmacy, and demographics verified at this time. Presentation: Diarrhea, 3rd visit for same Admitting dx: Intractable abd pain, recurrent diarrhea PCP: Pt states no current PCP but plans to see Lazaro Yun. Specialists: GAL Landeros Preferred Pharmacy: [facility] Insurance: [place] Prescription Benefit: [place] Living Will/HPOA: Pt states does not have LW/HPOA but would like AD info at this time. AD info provided to pt at this time. LNOK: Leobardo Eduardo, Living Arrangements: Pt states lives with in home and states no concerns at home at this time. Pt states is independent with ADL's. Transportation: Pt states drives self and states no transportation concerns at this time. DME/HHC: Pt states no current DME or need for any at this time. Pt states no hx of HHC or SNF in the past. Pt states no concerns with going home at time of discharge. 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 Pt states does not smoke cigarettes or drink ETOH. Pt states no further concerns/needs at this time. CM to follow for any further discharge planning/needs. Advised pt to ask for CM if any further questions/concerns/needs arise, voices understanding. Pt Goal: Home Plan[place] SHAWN YOUNG
[2020-02-13 14:20] VITALS: BP 116/76; PULSE 96; RESP 18; TEMP 36.4; O2SAT 99
[2020-02-13] MEDS: 0.9% Saline Lock 10 ML Syringe IV ×2 (14:25→21:03)
[2020-02-13] MEDS: Diphenoxylate/Atrop 1 Tablet 2 TABLET PO (17:36)
--- NOTE | 2020-02-13 18:53 | NURSING ---
REPORT GIVEN TO SHAWN CAST ON MS3
[2020-02-13 19:30] VITALS: BP 116/85; PULSE 80; RESP 16; TEMP 36.5; O2SAT 99
[2020-02-13] MEDS: Estradiol 1 MG Tablet PO (20:52)
[2020-02-13] MEDS: Acetaminophen 325 MG Tablet 650 MG PO (21:02)
[2020-02-13] MEDS: PROGESTERONE, MICRONIZED 100 MG CAPSULE PO (21:04)
[2020-02-14 03:10] VITALS: BP 98/70; PULSE 71; RESP 16; TEMP 36.5; O2SAT 98
[2020-02-14] MEDS: 0.9% Normal Saline 1,000 ML 150 ML IV (05:52)
[2020-02-14] MEDS: Dicyclomine 10 MG Capsule 20 MG PO ×2 (05:52→11:53)
[2020-02-14] MEDS: 0.9% Saline Lock 10 ML Syringe IV (05:53)
--- NOTE | 2020-02-14 06:49 | PN_ITS ---
Patient Problems: Active and Suspected Problems Colitis (Acute) Subjective: Patient overnight with no acute events per self and per nursing report. She notes tolerating diet and abdominal pain has lessened with usage of only Tylenol. She is up today walking the halls and more interactive. She denies any recurrent nausea or any emesis associated. She notes she has had 3 bowel movements since yesterday but these have been less liquidy and occasionally seem more formed. She remains amenable to follow-up with primary care physician as well as GI physician Dr. Kline on prednisone therapy as well as Entocort per her preference. Discussed that we would continue the Lomotil, cholestyramine and lactobacillus with de-escalation once improving. Patient denies fevers, chills, nausea, emesis, chest pain or dyspnea. Objective: Physical Examination: General: awake, alert, oriented x 3 and cooperative, seated upright in the medical surgical bed, prior to this was walking the halls, well-appearing, no obvious distress. Skin: normal color, turgor, no icterus, cyanosis. HEENT: AT/NC, EOMI, PERRLA, MMM. Lungs: CTA bilaterally, moderate effort, mild decrease BL bases, no rales, ronchi or wheezing. Heart: Regular rate and rhythm; no gallop, rub audible. Abdomen: soft, still some mild generalized discomfort, greater left side but no rebound or guarding, nondistended, normalized bowel sounds now. Extremities: no cyanosis, clubbing, or edema. Neurological: patient awake, alert, oriented x 3; cognitive function intact; pupils equally reactive to light and accomodation; cranial nerves II-XII grossly normal, moving all 4 extremities, no focal deficits, strength improved, mildly decreased but normalizing. Psychiatric: affect appears improved, smiling, no evidence of distress, no acute evidence of depressive or anxiety feelings. Vitals/I&O's: Vital Signs Temp Pulse Resp BP Pulse Ox 97.7 F L 71 16 98/70 98 02/14/20 03:10 02/14/20 03:10 02/14/20 03:10 02/14/20 03:10 02/14/20 03:10 Oxygen Delivery Method Room Air Weight: 121 lb 11.123 oz Body Mass Index (BMI) 20.2 Intake and Output for Last 24 Hours 02/12/20 02/13/20 02/14/20 23:59 23:59 23:59 Intake Total 3050 / 3050 4430 / 4430 902.5 / 902.5 Output Total 1250 / 1250 1100 / 1100 500 / 500 Balance 1800 / 1800 3330 / 3330 402.5 / 402.5 Microbiology Past 72 Hours 02/12/20 11:22 Stool Enteric Bacteriology - Final 02/12/20 11:22 Stool C. difficile DNA Amplification - Final Laboratory Results 02/13/20 05:26: WBC 8.9, RBC 3.99 L, Hgb 11.3 L, Hct 34.9 L, MCV 87.5, MCH 28.3, MCHC 32.4, RDW Std Deviation 42.8, RDW Coeff of Stuart 13.4, Plt Count 520 H, MPV 9.0, Immature Gran % (Auto) 1.800 H, Neut % (Auto) 87.6 H, Lymph % (Auto) 7.6 L, [place] % (Auto) 2.4, Eos % (Auto) 0.0, Baso % (Auto) 0.6, Absolute Neuts (auto) 7.8 H, Absolute Lymphs (auto) 0.67 L, Nucleated RBC % 0, Differential Comment SCANNED Current Medications Acetaminophen (Tylenol) 650 mg PO Q6H PRN PRN PRN Reason: Pain Score 1-10/Temp > 100.7 F Last Admin: 02/13/20 21:02 Dose: 650 mg Documented by: Al Hydroxide/Mg Hydroxide (Mylanta Ii) 30 ml PO Q6H PRN PRN PRN Reason: Gastric Burning Albuterol Sulfate (Ventolin Aerosols) 2.5 mg INHALATION Q2H PRN PRN PRN Reason: Shortness of Breath/Wheezing Budesonide (Budesonide Ec) 9 mg PO DAILY [facility] Last Admin: 02/13/20 10:49 Dose: 9 mg Documented by: Cholestyramine Resin (Questran 4gm Packet) 4 gm PO BIDAC [facility] Last Admin: 02/13/20 23:51 Dose: 4 gm Documented by: Dextrose (D50w Syringe) 0 gm IV X1 PRN; Protocol PRN Reason: Hypoglycemia Dicyclomine HCl (Bentyl) 20 mg PO TIDAC [facility] Last Admin: 02/14/20 05:52 Dose: 20 mg Documented by: Diphenoxylate HCl/Atropine (Lomotil) 2 tablet PO BID [facility] Last Admin: 02/13/20 17:36 Dose: 2 tablet Documented by: Estradiol (Estrace (G)) 1 mg PO DAILY@2200 [facility] Last Admin: 02/13/20 20:52 Dose: 1 mg Documented by: Glucagon () 1 mg IM .X1 PRN PRN Reason: Hypoglycemia Guaifenesin (Robitussin) 20 ml PO Q4H PRN PRN PRN Reason: COUGH Hydralazine HCl (Apresoline Iv) 10 mg IV Q4H PRN PRN PRN Reason: SBP > 160 Sodium Chloride () 1,000 mls @ 150 mls/hr IV .Q6H40M [facility] Last Admin: 02/14/20 05:52 Dose: 150 mls/hr Documented by: Lactobacillus Acidophilus (Acidophilus) 1 tablet PO TID [facility] Last Admin: 02/14/20 05:52 Dose: 1 tablet Documented by: Loperamide HCl (Imodium) 2 mg PO Q6H PRN PRN PRN Reason: LOOSE STOOLS Methylprednisolone (Solu-Medrol) 40 mg IV Q8 [facility] Last Admin: 02/14/20 05:52 Dose: 40 mg Documented by: Morphine Sulfate () 2 mg IV Q3H PRN PRN PRN Reason: Pain Score 6-10/10 Nutritional Formula (Lactose Free) (Ensure Clear) 120 ml PO 4X/DAY [facility] Last Admin: 02/13/20 20:23 Dose: Not Given Documented by: Ondansetron HCl (Zofran) 4 mg IV Q8H PRN PRN PRN Reason: NAUSEA/VOMITING Oxycodone HCl (Oxyir) 5 mg PO Q4H PRN PRN PRN Reason: Pain Score 4-5/10 Pantoprazole Sodium (Protonix) 20 mg PO BID [facility] Last Admin: 02/13/20 20:52 Dose: 20 mg Documented by: Prochlorperazine Edisylate (Compazine Iv) 5 mg IV Q4H PRN PRN PRN Reason: Breakthrough nausea/vomiting Sodium Chloride () 10 - 40 ml IV UD PRN PRN Reason: SALINE FLUSH Last Admin: 02/14/20 05:53 Dose: 10 ml Documented by: Temazepam (Restoril) 15 mg PO QHS PRN PRN PRN Reason: INSOMNIA Throat Lozenges (Cepacol Sore Throat Lozenge) 1 lozenge MUCOUS MEM Q2H PRN PRN PRN Reason: SORE THROAT STROKE Vital Signs/Narrative: Vital Signs Temp Pulse Resp BP Pulse Ox 02/14/20 03:10 97.7 F L 71 16 98/70 98 Medical Necessity - Tobacco Use Smoking Status: Former smoker - Quit cigarette tobacco usage approximately 20 years prior to current presentation with prior to this 1 pack/day since she was 17 years old. Tobacco Use: Non-smoker Assessment/Plan All Active Problems Colitis (Acute) Menorrhagia (Resolved) The patient is a 49 y/o F w/ PMHx: Hx Lymphocytic colitis with rectal involvement, History of Menorrhagia s/p ablation with symptomatic menopause otherwise healthy with history of recent presentation x 3 now (02/08, 02/10, 02/11) with now -representation to the [facility] ED on 02/12/20 with ongoing severe 10/10 abdominal pain and loose stools (watery in appearance), diffuse, cramping, intermittent, worsened with oral intake attempts with nausea without emesis now x 8 days. 1. Acute Intractable Abdominal Pain, Diarrhea suspected secondary to Possible Infectious Colitis versus Acute on Chronic Atypical Lymphocytic Colitis versus Irritable Bowel Disease: Given ongoing severity of symptoms and intractable pain with ongoing diarrhea, failed outpatient management with a repeat ED visit now x [address] scan with diffuse colitis evident which is not been present prior and per discussions with GI physician atypical for lymphocytic colitis presentation and her previous history of rectal involvement concurrently. Patient admitted to [place], aggressively hydrated, zosyn x 1 prior to negative enteric pathogens and negative c-diff assay, initiated and continued on solumedrol, budesonide per discussion with GI, Dr. Landeros and patient preference to transition from mesalamine, initially on scheduled lomotil, cholestyramine, lactobacillus with no BM since start, de-escalated to lomotil and cholestyramine to BID scheduled and continued lactobacillus. Patient diet advanced and tolerated. Given improvement, patient planned discharge on 40 mg prednisone daily x2 weeks with no taper with plan to follow-up with Dr. Landeros in his office w/ specifically early follow-up, continued endocort, lomotil and cholestyramine with de-escalation off anti-diarrheal once improving. 2. Hypokalemia: Admission K+ 3.3, magnesium level 1.8, supplementation given, repeat level in 02/13/20 4.1, normalized. 3. GI prophylaxis: Protonix. 4. DVT Prophylaxis: SCDs, low risk.
[2020-02-14] MEDS: Cholestyramine/Sucrose 4 GM/PACKET PO (07:07)
[2020-02-14 07:55] VITALS: O2SAT 99
--- NOTE | 2020-02-14 08:32 | DCINST_ITS ---
- Discharge Diagnoses Current Active Problems: Current Active and Chronic Problems 1. Acute Intractable Abdominal Pain, Diarrhea suspected secondary to Acute Colitis possible Inflammatory Bowel Disease complicated by Chronic Lymphocytic Colitis with associated intractable abdominal pain, diarrhea, nausea 2. Hypokalemia You will use the following diet at home:: Other - Recommend continued altered diet with avoidance of dairy and wheat. Advise food allergy formal testing outpatient. Your food should be the consistency of: Regular Your liquids should be the consistency of: Regular/Thin Discharge Activity: - - Encourage routine regular activity. May resume sexual activity in: - - Please complete steroid regimen and recommend complete resolution of diarrhea. Weight Bearing Status: Weight bearing as tolerated Call your doctor if you observe: Fever of 101 or Higher, Inability to urinate, Inability to have a bowel movement, Shortness of breath, Dizziness, Fainting spells, Chest pain, Uncontrolled pain, - - Recurrent profuse intractable diarrhea. Instructions: Treating Diarrhea Additional Instructions: DISCHARGE PLAN: (1) Continue the scheduled antidiarrheal regimen including cholestyramine and scheduled lomotil. Once you have improved you may de-escalate off these regimens. You may also discontinue bentyl once improved. (2) Complete 14 day regimen of steroids. (3) If your diarrhea worsens you may immediately contact Dr. Yun and Dr. Landeros. You may also increase your lomotil regimen to 2-4 tablets every 6 hours and you can increase the cholestyramine to 4x/day. (4) Strongly recommend consideration allergy testing outpatient. (5) Plan for repeat colonoscopy with Dr. Landeros per his timeline discretion. (6) Bring the CT scan on CD and read to your visit with Dr. Landeros. You may also bring your lab printouts. Allergies/Adverse Reactions: Allergies gluten Adverse Reaction (Verified 02/13/20 07:59) Food Allergy lactulose Adverse Reaction (Verified 02/13/20 07:59) Food Allergy thimerosal Adverse Reaction (Verified 02/12/20 10:27) Upset Stomach Medications to take at Discharge Estradiol 1 mg PO DAILY 02/09/20 Dicyclomine HCl [Bentyl] 20 mg PO TIDAC #20 cap 02/11/20 Progesterone, Micronized [Progesterone] 100 mg PO QHS 02/13/20 Budesonide [Budesonide EC] 9 mg PO DAILY #30 capsule.ec 02/14/20 Cholestyramine (with Sugar) [Questran Packet] 4 gm PO BID #60 powd.pack 02/14/20 Diphenoxylate/Atrop [Lomotil] 2 tablet PO BID #120 tablet 02/14/20 Lactobacillus Acidophilus [Acidophilus] 1 tab PO TID #90 tab 02/14/20 Ondansetron [Zofran Odt] 4 mg PO Q8H PRN PRN #10 tab 02/14/20 Pantoprazole Sodium [Protonix] 20 mg PO BID #60 tab 02/14/20 Prednisone [Deltasone] 40 mg PO DAILY #28 tab 02/14/20 Temazepam [Restoril] 15 mg PO QHS PRN PRN #10 capsule 02/14/20 The following prescriptions were given: Lactobacillus Acidophilus [Acidophilus] 1 tab PO TID #90 tab Transmission Status: Pending to [facility] Budesonide [Budesonide EC] 9 mg PO DAILY #30 capsule.ec Transmission Status: Pending to [facility] Prednisone [Deltasone] 40 mg PO DAILY #28 tab Transmission Status: Pending to [facility] Diphenoxylate/Atrop [Lomotil] 2 tablet PO BID #120 tablet Transmission Status: Sent to [facility] Pantoprazole Sodium [Protonix] 20 mg PO BID #60 tab Transmission Status: Pending to [facility] Cholestyramine (with Sugar) [Questran Packet] 4 gm PO BID #60 powd.pack Transmission Status: Pending to [facility] Temazepam [Restoril] 15 mg PO QHS PRN PRN #10 capsule PRN Reason: Insomnia Transmission Status: Sent to [facility] Ondansetron [Zofran Odt] 4 mg PO Q8H PRN PRN #10 tab PRN Reason: Nausea Transmission Status: Pending to [facility] Primary Care Physician: Care Physician,No Primary [Primary Care Provider] - Please follow up with your Primary Care Physician in: [place] Yun, please follow- up within 3-5 days to review admission. Test Results: Test results from this visit will be discussed in further detail at your follow- up appointment, if applicable. Please Follow Up With: Fernando Landeros MD When: Please follow-up in 2 weeks. Proposed Discharge Date: 02/14/20
--- NOTE | 2020-02-14 08:42 | DS.PCM_ITS ---
Discharge Date and Diagnosis - Problem List Patient Problems: Active and Suspected Problems Colitis (Acute) Date of Admission: 02/12/20 Date of Discharge: 02/14/20 - Primary Discharge Diagnosis Active and Suspected Problems 1. Acute Intractable Abdominal Pain, Diarrhea suspected secondary to Acute Colitis possible Inflammatory Bowel Disease complicated by Chronic Lymphocytic Colitis with associated intractable abdominal pain, diarrhea, nausea 2. Hypokalemia - Secondary Discharge Diagnosis Chronic Problems Lymphocytic colitis (Chronic) Postmenopausal (Chronic) Hospital Course and Treatment Operations: None Procedures: None Summary of Care Provided: The patient is a 49 y/o F w/ PMHx: Hx Lymphocytic colitis with rectal involvement, History of Menorrhagia s/p ablation with symptomatic menopause otherwise healthy with history of recent presentation x 3 (02/08, 02/10, 02/11) who represented to the [facility] ED on 02/12/20 with ongoing severe 10/10 abdominal pain and loose stools (watery in appearance), diffuse, cramping, intermittent, worsened with oral intake attempts with nausea without emesis now x 8 days, improved with rest and avoidance of intake, with review of evaluations with no fevers, mild tachycardia on 02/08 and 02/10 visits, worsening on current day of presentation, 02/09/20 CBC w/ WBC 14 with L shift, 02/10 CBC w/ WBC 10.7 with L shift, mildly improved, stable BMP without marked electrolyte disturbance, UA 02/10/20 with evidence dehydration. She denied any fever, chills, headache, body aches, rhinnorrhea or congestion in association. Prior ED evaluation with recommended follow-up with Dr. Landeros. Current ED evaluation with work-up included T 97.9, heart rate 135, BP 119/88, respiratory rate 18, 98% on room air, CBC with WC 10.7, hemoglobin 12.8, platelet 569 with ongoing left shift with mild lymphopenia noted but absolute normal, CMP potassium 3.3, chloride 108, carbon oxide 16, BUN/creatinine 5/0.51, glucose 91 otherwise hepatic profile unremarkable, repeat urinalysis with elevated specific raphe 1.025, protein 30, ketones 150, occult blood 25, 0 urine WBCs, 1+ bacteria, enteric bacteria as well as C. difficile stool pending, CT A/P with diffuse colitis with a mildly distended gallbladder but no specific right upper quadrant complaints. In the ED patient administered normal saline and Zofran therapy. Patient admitted to [place], aggressively hydrated, zosyn x 1 prior to negative enteric pathogens and negative c-diff assay, initiated and continued on solumedrol, budesonide per discussion with GI, Dr. Landeros and patient preference to transition from mesalamine, initially on scheduled lomotil, cholestyramine, lactobacillus with no BM since start, de-escalated to lomotil and cholestyramine to BID scheduled and continued lactobacillus. Patient diet advanced and tolerated. Given improvement, patient planned discharge on 40 mg prednisone daily x2 weeks with no taper with plan to follow-up with Dr. Landeros in his office w/ specifically early follow-up, continued endocort, lomotil and cholestyramine with de-escalation off anti-diarrheal once improving. Patient Problems: Active and Suspected Problems Colitis (Acute) - Physical Exam Vitals/I&O's: Vital Signs Temp Pulse Resp BP Pulse Ox 97.7 F L 71 16 98/70 99 02/14/20 03:10 02/14/20 03:10 02/14/20 03:10 02/14/20 03:10 02/14/20 07:55 Oxygen Delivery Method Room Air Weight: 121 lb 11.123 oz Body Mass Index (BMI) 20.2 Intake and Output for Last 24 Hours 02/12/20 02/13/20 02/14/20 23:59 23:59 23:59 Intake Total 3050 / 3050 4430 / 4430 902.5 / 902.5 Output Total 1250 / 1250 1100 / 1100 500 / 500 Balance 1800 / 1800 3330 / 3330 402.5 / 402.5 Microbiology Past 72 Hours 02/12/20 11:22 Stool Enteric Bacteriology - Final 02/12/20 11:22 Stool C. difficile DNA Amplification - Final Current Medications Acetaminophen (Tylenol) 650 mg PO Q6H PRN PRN PRN Reason: Pain Score 1-10/Temp > 100.7 F Last Admin: 02/13/20 21:02 Dose: 650 mg Documented by: Al Hydroxide/Mg Hydroxide (Mylanta Ii) 30 ml PO Q6H PRN PRN PRN Reason: Gastric Burning Albuterol Sulfate (Ventolin Aerosols) 2.5 mg INHALATION Q2H PRN PRN PRN Reason: Shortness of Breath/Wheezing Budesonide (Budesonide Ec) 9 mg PO DAILY [facility] Last Admin: 02/13/20 10:49 Dose: 9 mg Documented by: Cholestyramine Resin (Questran 4gm Packet) 4 gm PO BIDAC [facility] Last Admin: 02/14/20 07:07 Dose: 4 gm Documented by: Dextrose (D50w Syringe) 0 gm IV X1 PRN; Protocol PRN Reason: Hypoglycemia Dicyclomine HCl (Bentyl) 20 mg PO TIDAC [facility] Last Admin: 02/14/20 05:52 Dose: 20 mg Documented by: Diphenoxylate HCl/Atropine (Lomotil) 2 tablet PO BID [facility] Last Admin: 02/13/20 17:36 Dose: 2 tablet Documented by: Estradiol (Estrace (G)) 1 mg PO DAILY@2200 [facility] Last Admin: 02/13/20 20:52 Dose: 1 mg Documented by: Glucagon () 1 mg IM .X1 PRN PRN Reason: Hypoglycemia Guaifenesin (Robitussin) 20 ml PO Q4H PRN PRN PRN Reason: COUGH Hydralazine HCl (Apresoline Iv) 10 mg IV Q4H PRN PRN PRN Reason: SBP > 160 Sodium Chloride () 1,000 mls @ 150 mls/hr IV .Q6H40M [facility] Last Admin: 02/14/20 05:52 Dose: 150 mls/hr Documented by: Lactobacillus Acidophilus (Acidophilus) 1 tablet PO TID [facility] Last Admin: 02/14/20 05:52 Dose: 1 tablet Documented by: Loperamide HCl (Imodium) 2 mg PO Q6H PRN PRN PRN Reason: LOOSE STOOLS Methylprednisolone (Solu-Medrol) 40 mg IV Q8 [facility] Last Admin: 02/14/20 05:52 Dose: 40 mg Documented by: Morphine Sulfate () 2 mg IV Q3H PRN PRN PRN Reason: Pain Score 6-10/10 Nutritional Formula (Lactose Free) (Ensure Clear) 120 ml PO 4X/DAY [facility] Last Admin: 02/13/20 20:23 Dose: Not Given Documented by: Ondansetron HCl (Zofran) 4 mg IV Q8H PRN PRN PRN Reason: NAUSEA/VOMITING Oxycodone HCl (Oxyir) 5 mg PO Q4H PRN PRN PRN Reason: Pain Score 4-5/10 Pantoprazole Sodium (Protonix) 20 mg PO BID [facility] Last Admin: 02/13/20 20:52 Dose: 20 mg Documented by: Prochlorperazine Edisylate (Compazine Iv) 5 mg IV Q4H PRN PRN PRN Reason: Breakthrough nausea/vomiting Sodium Chloride () 10 - 40 ml IV UD PRN PRN Reason: SALINE FLUSH Last Admin: 02/14/20 05:53 Dose: 10 ml Documented by: Temazepam (Restoril) 15 mg PO QHS PRN PRN PRN Reason: INSOMNIA Throat Lozenges (Cepacol Sore Throat Lozenge) 1 lozenge MUCOUS MEM Q2H PRN PRN PRN Reason: SORE THROAT Discharge Activity: - - Encourage routine regular activity. May resume sexual activity in: - - Please complete steroid regimen and recommend complete resolution of diarrhea. Weight Bearing Status: Weight bearing as tolerated Call your doctor if you observe: Fever of 101 or Higher, Inability to urinate, Inability to have a bowel movement, Shortness of breath, Dizziness, Fainting spells, Chest pain, Uncontrolled pain, - - Recurrent profuse intractable diarrhea. Home Medications: Medications to take at Discharge Estradiol 1 mg PO DAILY 02/09/20 Dicyclomine HCl [Bentyl] 20 mg PO TIDAC #20 cap 02/11/20 Progesterone, Micronized [Progesterone] 100 mg PO QHS 02/13/20 Budesonide [Budesonide EC] 9 mg PO DAILY #30 capsule.ec 02/14/20 Cholestyramine (with Sugar) [Questran Packet] 4 gm PO BID #60 powd.pack 02/14/20 Diphenoxylate/Atrop [Lomotil] 2 tablet PO BID #120 tablet 02/14/20 Lactobacillus Acidophilus [Acidophilus] 1 tab PO TID #90 tab 02/14/20 Ondansetron [Zofran Odt] 4 mg PO Q8H PRN PRN #10 tab 02/14/20 Pantoprazole Sodium [Protonix] 20 mg PO BID #60 tab 02/14/20 Prednisone [Deltasone] 40 mg PO DAILY #28 tab 02/14/20 Temazepam [Restoril] 15 mg PO QHS PRN PRN #10 capsule 02/14/20 Following Prescrptions Were Given to Patient: Lactobacillus Acidophilus [Acidophilus] 1 tab PO TID #90 tab Transmission Status: Pending to [facility] Budesonide [Budesonide EC] 9 mg PO DAILY #30 capsule.ec Transmission Status: Pending to [facility] Prednisone [Deltasone] 40 mg PO DAILY #28 tab Transmission Status: Pending to [facility] Diphenoxylate/Atrop [Lomotil] 2 tablet PO BID #120 tablet Transmission Status: Sent to [facility] Pantoprazole Sodium [Protonix] 20 mg PO BID #60 tab Transmission Status: Pending to [facility] Cholestyramine (with Sugar) [Questran Packet] 4 gm PO BID #60 powd.pack Transmission Status: Pending to [facility] Temazepam [Restoril] 15 mg PO QHS PRN PRN #10 capsule PRN Reason: Insomnia Transmission Status: Sent to [facility] Ondansetron [Zofran Odt] 4 mg PO Q8H PRN PRN #10 tab PRN Reason: Nausea Transmission Status: Pending to [facility] Primary Care Physician: Care Physician,No Primary [Primary Care Provider] - Please follow up with your Primary Care Physician in: [place] Yun, please follow- up within 3-5 days to review admission. Please Follow Up With: Fernando Landeros MD When: Please follow-up in 2 weeks. Patient Instructions: Treating Diarrhea Disposition: Home Minutes spent on discharge:: 35 Patient Condition:: Fair Medical Necessity - Tobacco Use Smoking Status: Former smoker - Quit cigarette tobacco usage approximately 20 years prior to current presentation with prior to this 1 pack/day since she was 17 years old. Tobacco Use: Non-smoker Meaningful Use Info Meaningful Use Diagnoses (Choose all that apply): None applicable Inpatient E&M: 39569 Disch Hosp
[2020-02-14 09:07] VITALS: BP 105/69; PULSE 72; RESP 18; TEMP 36.7; O2SAT 95
[2020-02-14] MEDS: Pantoprazole Sodium 20 MG Tablet PO (11:53)
[2020-02-14] MEDS: Budesonide 3 MG CAPSULE.EC 9 MG PO (11:53)
[2020-02-14] MEDS: Acetaminophen 325 MG Tablet 650 MG PO (11:57)
[2020-02-14] MEDS: Diphenoxylate/Atrop 1 Tablet 2 TABLET PO (11:57)
[2020-02-14 13:08] VITALS: BP 106/73; PULSE 70; RESP 18; TEMP 36.4; O2SAT 97
== END 2020-02-14 13:59 | disposition home or self-care (01) | DRG 392 ==
LOC: ED 11:11 → PCU 13:17 → MS3 02-13 19:01
PROVIDERS: Admitting Provider Family Medicine; Emergency Provider Emergency Medicine; Visit Provider Family Medicine
DX: K52.9 Noninfective gastroenteritis and colitis, unspecified (principal); K52.832 Lymphocytic colitis; E87.6 Hypokalemia; R11.0 Nausea; E86.0 Dehydration; K82.8 Other specified diseases of gallbladder; Z79.899 Other long term (current) drug therapy; Z87.891 Personal history of nicotine dependence
CPT/HCPCS: 36415; 74177; 80053; 81001; 83735; 84100; 85025; 87493; 87506; 96361; 96374; 97802; 99251; 99285; J7030; Q9967; A4216; G0463; J2405

== ENCOUNTER 2020-02-17 20:08 | Inpatient (IN) | payer BC, SELFPAY ==
[2020-02-12 15:40] VITALS: BMI 20.2
[2020-02-17 20:09] VITALS: BP 115/76; PULSE 111; RESP 18; TEMP 36.7; O2SAT 96; BMI 20.7
--- NOTE | 2020-02-17 20:25 | CT_ITS ---
STUDY: CT ABDOMEN AND PELVIS WITH CONTRAST REASON FOR EXAM: Female, 49 years old. ABD PAIN/COLITIS RADIATION DOSAGE (If Supplied By Facility): CTDIvol = ( 13.71 ) mGy, DLP = ( 389.60 ) mGycm TECHNIQUE: Transaxial images were obtained from the dome of the diaphragm to the symphysis pubis without oral contrast. Oral and amp; IV Gastrografin and amp; 100mL Isovue-370 was administered. Sagittal and coronal images were reconstructed. Individualized dose optimization techniques were used for this CT. COMPARISON: CT abdomen and pelvis 02/12/2020. FINDINGS: Development of small bilateral pleural effusions. Mild bibasilar subsegmental atelectasis. The visualized portions of the heart are within normal limits. Normal liver. Normal gallbladder and extrahepatic biliary system. Normal spleen. Normal pancreas. Normal bilateral adrenal glands. Normal right kidney. Normal left kidney. Normal visualized stomach. Normal small intestine. The diffuse colitis pattern is again noted. There is colonic dilation, wall thickening and enhancement most significant within the cecum and ascending colon. There is also involvement of the transverse colon and proximal sigmoid colon. There is interval worsening of the involvement of the cecum and ascending colon. There is interval improvement of the involvement of the sigmoid colon. Normal abdominal aorta. Normal inferior vena cava. Normal retroperitoneum. Small subcentimeter density likely within the uterus. There is new small amount of free fluid within the cul-de-sac. Normal urinary bladder. Normal abdominal wall stable bony fusion of the left SI joint. Mild multilevel degenerative changes lumbar and thoracic spine with mild Schmorl''s nodes. CT/Abdomen/Pelvis WITH Contrast IMPRESSION: . The diffuse colitis pattern is again noted. There is colonic dilation, wall thickening and enhancement most significant within the cecum and ascending colon. There is also involvement of the transverse colon and proximal sigmoid colon. There is interval worsening of the involvement of the cecum and ascending colon. There is interval improvement of the involvement of the sigmoid colon. New small amount of free fluid within the cul-de-sac New small bilateral pleural effusions and mild linear subsegmental atelectasis Stable left sacroiliitis mild spondylosis thoracic and lumbar spine Electronically Signed: Deven Dey, at 23:03 EDT Tel , Service support ,
[2020-02-17] MEDS: 0.9% Normal Saline 1,000 ML 1000 ML IV (20:39)
[2020-02-17] MEDS: Ondansetron 4 MG/2 ML Vial IV (20:39)
[2020-02-17] MEDS: HYDROmorphone 1 MG/ML Syringe IV (20:39)
[2020-02-17 20:55] LABS: Absolute Lymphocyte Count 0.53 X10^3/uL (0.83-4.51); Absolute Neutrophil Count 10.2 X10^3/uL (2.0-7.7); Basophil# 0.01 X10^3/uL; Basophil% 0.1 % (0-1); Eosinophil# 0.02 X10^3/uL; Eosinophils% 0.2 % (0-5); Hematocrit 33.9 % (37-47); Hemoglobin 11.2 g/dL (12.0-15.0); Lymphocyte # 0.53 X10^3/ul (4.0); Lymphocyte % 4.6 % (19-41); Mean Corpuscular Hgb 28.1 pg (27.0-32.0); Mean Corpuscular Volume 85.2 fL (81-99); Mean Platelet Vol. 9.1 fl (6.2-12.0); Monocyte# 0.56 X10^3/uL; Monocyte% 4.9 % (0-10); NRBC Flagged by Analyzer 0 % (0-5); Neutrophil # 10.19 X10^3/uL (2.7-7.7); Neutrophil % 89.1 % (47-70); POSITIVE DIFFERENTIAL YES; POSITIVE MORPHOLOGY YES; Platelet Count 474 K/mm3 (150-450); RBC Distribution Width CV 13.5 % (11.6-14.6); RBC Distribution Width SD 41.8 fl (35.1-43.9); Red Blood Count 3.98 M/mm3 (4.2-5.4); White Blood Count 11.4 K/mm3 (4.4-11.0)
[2020-02-17 21:00] LABS: Differential Indicated SCAN CRITERIA MET
[2020-02-17 21:10] LABS: ALB/GLOB Ratio 0.6 RATIO (0.9-2.4); AST(SGOT) 16 U/L (15-37); Alanine Aminotransfer ALT/SGPT 33 U/L (13-56); Albumin, Serum 2.1 g/dL (3.2-5.0); Alkaline Phosphatase 69 U/L (45-117); Anion Gap 8 (5-15); BUN 11 mg/dL (7-18); BUN/Creat Ratio 26.8 RATIO (10-20); Calcium,Total 8.2 mg/dL (8.5-10.1); Chloride 98 mmol/L (98-107); Creatinine, Serum 0.41 mg/dL (0.55-1.02); EST Glomerular Filtration Rate 174 mL/min (>60); Est Glom Filt Rate - Afr Amer 211 mL/min (>60); Estimated Creatinine Clearance 146.93 ml/min; Globulin 3.5 g/dL (2.2-4.2); Glucose 112 mg/dL (74-106); Lipase 133 U/L (73-393); Potassium 3.5 mmol/L (3.5-5.1); Protein, Total 5.6 g/dL (6.4-8.2); Sodium Level 135 mmol/L (136-145)
[2020-02-17 21:17] LABS: Lactic Acid 1.2 mmol/L (0.4-1.9)
--- NOTE | 2020-02-17 21:28 | ED.DCSUM_ITS ---
History of Present Illness Chief Complaint: Abd Pain Narrative: Patient presenting for evaluation secondary to abdominal pain. Patient has a history of chronic colitis, and is on multiple controlling medications. Patient was actually just recently admitted to the hospital for this, and was discharged couple of days ago. Patient reports that since then she has had worsening of her pain. Pain is across her lower abdomen is continuous sharp type pain. Patient denies that she is having any sort of diarrhea or loose watery stools associated with this. Patient denies any nausea vomiting and fevers. She has been compliant with her medication regimen. Patient was unable to deal with the pain at home, so she re-presented to the emergency department for further management Past Medical History - Allergies and Home Meds Allergies/Adverse Reactions: Allergies gluten Adverse Reaction (Verified 02/17/20 20:09) Food Allergy lactulose Adverse Reaction (Verified 02/17/20 20:09) Food Allergy thimerosal Adverse Reaction (Verified 02/17/20 20:09) Upset Stomach Primary Care Physician: Lazaro Yun MD [Primary Care Provider] - Surgical History: - - Uterine ablation, T+A. Smoking Status: Former smoker - Family History Maternal Family History: Reports: - - Patient notes maternal family history of cancer, brain tumor, unclear type. Paternal Family History: Reports: - - Patient notes paternal family history of hypertension. Review of Systems All systems negative except as indicated General: Denies: Chills, Fever, Sweats Eyes: Denies: Visual changes - bilaterally, Diplopia ENT: Denies: Rhinorrhea, Sore throat Cardiovascular: Denies: Chest pain, Palpitations Respiratory: Denies: Dyspnea, Cough, Dyspnea on exertion Gastrointestinal: Reports: Abdominal pain. Denies: Nausea, Vomiting, Diarrhea, Melena, Hematochezia Genitourinary: Denies: Dysuria, Hematuria, Frequency Musculoskeletal: Denies: Back pain, Extremity Pain Skin: Denies: Rash, Wounds Neurological: Denies: Headache, Weakness, Numbness Physical Exam Vital Signs/Narrative: Vital Signs Temp Pulse Resp BP Pulse Ox 02/17/20 20:09 98.0 F 111 H 18 115/76 96 Inital Vital Signs reviewed: Yes General: Well nourished, Well developed, - - Somewhat tearful but otherwise not in physiologic distress Head: Normocephalic, Atraumatic Eyes: Perrl, EOMI ENT: Moist mucous membranes, No rhinorrhea Neck: Supple, Nontender Cardiovascular: Regular rate, Regular rhythm, No murmurs Respiratory: No distress, CTA bilaterally, Chest nontender Abdomen: Soft, Nondistended, Normal bowel sounds, Tender - Diffuse tenderness with some localization in the lower abdomen specifically on the right, no guarding or rebound tenderness noted. Back: Nontender, Normal Inspection Extremities: Nontender, No edema Skin: Normal color, No rash Neurological: Alert, Oriented x3, Cranial nerves II-XII grossly intact, Normal Strength, Normal Sensation Psychological: Normal affect, Normal Mood Diagnostic/Tx/Re-eval Clinical Impression(s) from Imaging Studies Abdomen/Pelvis CT 02/17/20 20:25 IMPRESSION: . The diffuse colitis pattern is again noted. There is colonic dilation, wall thickening and enhancement most significant within the cecum and ascending colon. There is also involvement of the transverse colon and proximal sigmoid colon. There is interval worsening of the involvement of the cecum and ascending colon. There is interval improvement of the involvement of the sigmoid colon. New small amount of free fluid within the cul-de-sac New small bilateral pleural effusions and mild linear subsegmental atelectasis Stable left sacroiliitis mild spondylosis thoracic and lumbar spine Electronically Signed: Deven Dey, at 23:03 EDT Tel , Service support , Laboratory Data 02/17/20 02/17/20 02/17/20 20:40 20:45 20:45 WBC 11.4 H RBC 3.98 L Hgb 11.2 L Hct 33.9 L MCV 85.2 MCH 28.1 MCHC 33.0 RDW Std Deviation 41.8 RDW Coeff of Stuart 13.5 Plt Count 474 H MPV 9.1 Immature Gran % (Auto) 1.100 H Neut % (Auto) 89.1 H Lymph % (Auto) 4.6 L [place] % (Auto) 4.9 Eos % (Auto) 0.2 Baso % (Auto) 0.1 Absolute Neuts (auto) 10.2 H Absolute Lymphs (auto) 0.53 L Nucleated RBC % 0 Differential Comment SEE COMMENT Diff Path Review May foll Toxic Granulation RARE Platelet Estimate SLT INC RBC Morphology N CHROM Hypochromasia RARE Anisocytosis RARE Sodium 135 L Potassium 3.5 Chloride 98 Carbon Dioxide 29.0 Anion Gap 8 BUN 11 Creatinine 0.41 L Estim Creat Clear Calc 146.93 Est GFR (MDRD) Af Amer 211 Est GFR (MDRD) Non-Af 174 BUN/Creatinine Ratio 26.8 H Glucose 112 H Lactic Acid 1.2 Calcium 8.2 L Total Bilirubin 0.50 AST 16 ALT 33 Alkaline Phosphatase 69 Total Protein 5.6 L Albumin 2.1 L Globulin 3.5 Albumin/Globulin Ratio 0.6 L Lipase 133 - Medical Decision Making Patient presenting secondary to abdominal pain in the setting of having a history of chronic lymphocytic colitis. Patient's abdomen was rather tender diffusely specifically on the right side. Laboratory work-up was obtained patient was given hydromorphone and Zofran as well as fluids. CBC shows mild leukocytosis, chemistry shows no evidence of acidosis or electrolyte derangement. CT abdomen and pelvis with p.o. and IV contrast shows some wo rsening of the patient's colitis. There is a minimal amount of free fluid in the pelvis, but no evidence of abscess collection. Patient's pain required multiple doses of IV pain medication. I believe the patient requires admission at this point for worsening of her colitis. Patient will be admitted under the hospitalist. Disposition: Admit to Med Surg ED Disposition - Plan for ED Patient: Disposition: Acute Care Hospital [facility] Diagnosis: Lymphocytic colitis, Intractable abdominal pain
[2020-02-17 21:42] LABS: Anisocytosis RARE; Platelet Estimate SLT INC (ADEQ); Red Cell Morphology N CHROM NORMAL (NORM C&C)
[2020-02-17 21:43] LABS: Hypochromasia RARE; Toxic Granulation RARE
[2020-02-17 22:08] VITALS: BP 104/77; PULSE 75; RESP 20; O2SAT 95
[2020-02-17] MEDS: HYDROmorphone 0.5 MG/0.5 ML SYRINGE IV (22:47)
--- NOTE | 2020-02-17 23:18 | HP.PCM_ITS ---
Problem List (1) Colitis Status: Acute (2) Lymphocytic colitis Status: Chronic (3) Postmenopausal Status: Chronic (4) Intractable abdominal pain Status: Acute History of Present Illness Date of Admission: 02/17/20 Chief Complaint: Abdominal pain The patient is a 49 year old F with a significant history of lymphocytic colitis who presents to the emergency department with excruciating diffuse abdominal pain that re-occurred on the same day of presentation. Quality of pain:Sharp, aching, dull and all other descriptive pain adjective used by examiner. Radiation: None Aggravation: With bowel movements Ameliorating: Pain medication received at emergency department. Association factors: Multiple loose stools; about 6-7 on the day of presentation; and nausea. She denies vomiting. She thinks that she might have lost some weight; unable to quantify. Patient was admitted on 02/12/2020 and discharged on 02/14/2020. On that admission hospitalist discussed her case with patient's GI doctor, Dr. Landeros and recommendations were followed. Patient was discharged home on prednisone. Reportedly her GI doctor resumed her mesalamine on discharge. Past Medical History Past Medical History (Chronic Problems): Chronic Problems Lymphocytic colitis (Chronic) Postmenopausal (Chronic) Allergies gluten Adverse Reaction (Verified 02/17/20 20:09) Food Allergy lactulose Adverse Reaction (Verified 02/17/20 20:09) Food Allergy thimerosal Adverse Reaction (Verified 02/17/20 20:09) Upset Stomach Home Medications: Ambulatory Orders Medication Instructions Recorded Estradiol 1 mg PO DAILY 02/09/20 Dicyclomine HCl [Bentyl] 20 mg PO TIDAC #20 cap 02/11/20 Progesterone, Micronized 100 mg PO QHS 02/13/20 [Progesterone] Budesonide [Budesonide EC] 9 mg PO DAILY #30 capsule.ec 02/14/20 Cholestyramine (with Sugar) 4 gm PO BID #60 powd.pack 02/14/20 [Questran Packet] Lactobacillus Acidophilus 1 tab PO TID #90 tab 02/14/20 [Acidophilus] Ondansetron [Zofran Odt] 4 mg PO Q8H PRN PRN #10 tab 02/14/20 Pantoprazole Sodium [Protonix] 20 mg PO BID #60 tab 02/14/20 Prednisone [Deltasone] 40 mg PO DAILY #28 tab 02/14/20 Temazepam [Restoril] 15 mg PO QHS PRN PRN #10 cap 02/14/20 Hyoscyamine Sulfate [Hyoscyamine 0.375 mg PO DAILY 02/17/20 Sulfate ER] Mesalamine [Lialda] 1.2 gm PO DAILY 02/17/20 Potassium Chloride 10 meq PO DAILY 02/17/20 Surgical History: - - Uterine ablation, T+A. Psychiatric History: No pertinent psych hx HOSPICE CASE MANAGER History: No pertinent HOSPICE CASE MANAGER history Smoking Status: Former smoker Tobacco Use: Non-smoker - *Family History Maternal History Items: - - Patient notes maternal family history of cancer, brain tumor, unclear type. Paternal History Items: - - Patient notes paternal family history of hypertension. Review of Systems Constitutional: Denies: Chills, Fever HEENT: Denies: Head Aches, Sinus Congestion, Sinus Drainage Cardiovascular: Reports: Edema. Denies: Chest Pain, Palpitations Respiratory: Denies: Cough, Shortness of breath at rest, Sputum production Gastrointestinal: Reports: Abdominal Pain, Diarrhea, Nausea. Denies: Vomiting Genitourinary: Denies: Dysuria Musculoskeletal: Denies: Joint Pain, Joint Tenderness Skin: Denies: Rash, Wounds Neurological: Denies: Numbness, Tingling, Focal weakness Psychiatric: Denies: Anxiety, Depression, Homicidal Ideations, Suicidal Ideations Hematologic/ Lymphatic: Denies: Easy Bruising, Easy Bleeding VTE Information - Inpt Only VTE Present on Admission: No VTE Mechan Device Prophylaxis: None VTE Pharm Prophylaxis ordered?: Yes Patient Problems: Active and Suspected Problems Intractable abdominal pain (Acute) - Physical Exam Vitals/I&O's: Vital Signs Temp Pulse Resp BP Pulse Ox 98.0 F 75 20 H 104/77 95 02/17/20 20:09 02/17/20 22:08 02/17/20 22:08 02/17/20 22:08 02/17/20 22:08 Oxygen Delivery Method Room Air Weight: 56.699 kg Body Mass Index (BMI) 20.7 Intake and Output for Last 24 Hours 02/15/20 02/16/20 02/17/20 23:59 23:59 23:59 Intake Total 1000 / 1000 Balance 1000 / 1000 General: Alert, Oriented x3, Cooperative HEENT: Atraumatic, PERRLA, EOMI, Normocephalic Neck: Supple, No JVD, Negative Carotid Bruits Lungs: Clear to auscultation, Normal air movement, No rhonchi, No wheeze, No rales Cardiovascular: Regular rate, Regular Rhythm, Normal S1, Normal S2, No murmurs Abdomen: Bowel Sounds Present, Soft, Tender Extremities: No edema, Capillary Refill Less than 3 Seconds Skin: No rashes, No breakdown Musculoskeletal: No Tenderness to Palpation of Joints or Extremities Neurological: Cranial nerves II-XII grossly intact Psych/Mental Status: Normal Affect, Appropriate Laboratory Results 02/17/20 20:40: WBC 11.4 H, RBC 3.98 L, Hgb 11.2 L, Hct 33.9 L, MCV 85.2, MCH 28.1, MCHC 33.0, RDW Std Deviation 41.8, RDW Coeff of Stuart 13.5, Plt Count 474 H, MPV 9.1, Immature Gran % (Auto) 1.100 H, Neut % (Auto) 89.1 H, Lymph % (Auto) 4.6 L, [place] % (Auto) 4.9, Eos % (Auto) 0.2, Baso % (Auto) 0.1, Absolute Neuts (auto) 10.2 H, Absolute Lymphs (auto) 0.53 L, Nucleated RBC % 0, Differential Comment SEE COMMENT, Diff Path Review May foll, Toxic Granulation RARE, Platelet Estimate SLT INC, RBC Morphology N CHROM, Hypochromasia RARE, Anisocytosis RARE 02/17/20 20:45: Sodium 135 L, Potassium 3.5, Chloride 98, Carbon Dioxide 29.0, Anion Gap 8, BUN 11, Creatinine 0.41 L, Estim Creat Clear Calc 146.93, Est GFR (MDRD) Af Amer 211, Est GFR (MDRD) Non-Af 174, BUN/Creatinine Ratio 26.8 H, Glucose 112 H, Calcium 8.2 L, Total Bilirubin 0.50, AST 16, ALT 33, Alkaline Ph osphatase 69, Total Protein 5.6 L, Albumin 2.1 L, Globulin 3.5, Albumin/Globulin Ratio 0.6 L, Lipase 133 02/17/20 20:45: Lactic Acid 1.2 Assessment/Plan All Active Problems Colitis (Acute) Menorrhagia (Resolved) Intractable abdominal pain (Acute) The patient is a 49 year old F with a significant history of lymphocytic colitis who presents to the emergency department with excruciating tearing excruciating abdominal pain; and nausea; and with CT abdomen and pelvis findings of colitis. Acute on chronic lymphocytic colitis. Of note CT of abdomen and pelvis shows worsening colitis with small free fluid in the cul-de-sac and with small bilateral pleural effusions. CT of the abdomen and pelvis was independently reviewed. Hold prednisone prescribed on recent discharge. Begin patient on Solu-Medrol 40 mg IV twice daily. Resume home budesonide and mesalamine. Resume home hyoscyamine; and cholestyramine. Resume Bentyl. Pain control with PRN IV morphine. Antiemetics with IV Zofran. Patient thinks she can eat solid food if nausea is controlled. Regular diet ordered. On a recent admission enteric bacteriology and a C. difficile test was negative; antibiotics was subsequently discontinued on that admission. Will not start antibiotics. Gentle IV hydration of normal saline with potassium supplementation. Of note patient that she has bilateral lower extremity edema. Resume home p.o. potassium. Trend CBC and BMP. Atelectasis: Incentive spirometer ordered. Postmenopausal symptoms: Estradiol and progesterone continued. Insomnia: Restoril continued GERD: Protonix continued DVT prophylaxis: Subcutaneous Lovenox. Inpatient E&M: 79295 In Hosp L3
[2020-02-17 23:20] VITALS: BP 103/72; PULSE 77; RESP 16; O2SAT 94
[2020-02-17 23:42] VITALS: BP 106/78; PULSE 78; RESP 18; TEMP 36.9; O2SAT 95
[2020-02-17 23:57] VITALS: BMI 20.5
[2020-02-17 23:58] VITALS: BMI 20.8
[2020-02-18] VITALS (7 sets, daily range): BP systolic 101–118; BP diastolic 69–80; PULSE 75–92; RESP 14–18; TEMP 36.4–36.9; O2SAT 94–99; BMI 20.5
[2020-02-18] MEDS: 0.9% Saline Lock 10 ML Syringe IV ×5 (00:31→17:40)
[2020-02-18] MEDS: Potassium Chloride 40 MEQ in 0.9% Normal Saline 1,000 ML 50 MEQ IV (00:41)
[2020-02-18] MEDS: Morphine 2 MG/ML Syringe IV ×6 (01:15→20:54)
[2020-02-18] MEDS: Dicyclomine 10 MG Capsule 20 MG PO ×3 (05:57→16:44)
[2020-02-18 07:48] LABS: Hemoglobin 10.4 g/dL (12.0-15.0); Mean Corp Hgb Conc 32.5 g/dL (32-36); Mean Corpuscular Hgb 28.5 pg (27.0-32.0); Mean Corpuscular Volume 87.7 fL (81-99); Mean Platelet Vol. 9.3 fl (6.2-12.0); POSITIVE DIFFERENTIAL YES; POSITIVE MORPHOLOGY YES; Platelet Count 432 K/mm3 (150-450); RBC Distribution Width CV 13.7 % (11.6-14.6); RBC Distribution Width SD 43.7 fl (35.1-43.9); Red Blood Count 3.65 M/mm3 (4.2-5.4)
[2020-02-18 07:59] LABS: Anion Gap 5 (5-15); BUN 11 mg/dL (7-18); BUN/Creat Ratio 27.6 RATIO (10-20); Calcium,Total 7.9 mg/dL (8.5-10.1); Chloride 102 mmol/L (98-107); EST Glomerular Filtration Rate 181 mL/min (>60); Est Glom Filt Rate - Afr Amer 218 mL/min (>60); Glucose 105 mg/dL (74-106); Sodium Level 138 mmol/L (136-145)
[2020-02-18] MEDS: Ondansetron 4 MG/2 ML Vial IV (08:32)
[2020-02-18 08:38] LABS: Differential Indicated MANUAL DIFF
[2020-02-18 08:45] LABS: Lymphocyte 7 % (19-41); Monocyte 3 % (0-10); Neutrophil-Band 72 % (0-5); Neutrophil-Segmented 18 % (47-70); Total Cells Counted 100 (MANUAL DIFF)
[2020-02-18 08:46] LABS: Toxic Granulation 2+
[2020-02-18 08:47] LABS: Platelet Estimate ADEQUATE (ADEQ); Red Cell Morphology NORM C+C NORMAL (NORM C&C)
--- NOTE | 2020-02-18 09:17 | PN_ITS ---
Patient Problems: Active and Suspected Problems Intractable abdominal pain (Acute) Reason for Visit: Follow-up on acute on chronic colitis Subjective: Patient was seen and examined. She complains of severe abdominal pain with nausea. She has had 3-4 diarrheal stools today. Denied any fever or chills. Vitals/I&O's: Vital Signs Temp Pulse Resp BP Pulse Ox 97.5 F L 75 16 101/69 94 02/18/20 05:10 02/18/20 05:10 02/18/20 05:10 02/18/20 05:10 02/18/20 07:10 Oxygen Delivery Method Room Air Weight: 55.792 kg Body Mass Index (BMI) 20.5 Intake and Output for Last 24 Hours 02/16/20 02/17/20 02/18/20 23:59 23:59 23:59 Intake Total 1000 / 1000 350 / 350 Output Total 400 / 400 Balance 1000 / 1000 -50 / -50 General: Alert, Oriented x3, Cooperative, - - in mild distress HEENT: Atraumatic, PERRLA, EOMI, Normocephalic Oral: Moist Mucosa Neck: Supple Lungs: Clear to auscultation, Normal air movement Cardiovascular: Regular rate, Regular Rhythm, Normal S1, Normal S2, No murmurs Abdomen: Bowel Sounds Present, Soft, Non-Distended, No Hepato-splenomegaly, Tender - generalised, mild guarding, no rebound tenderness Extremities: No edema Skin: No rashes Musculoskeletal: No Tenderness to Palpation of Joints or Extremities Lymphatic: No Cervical, Supraclavicular, or Inguinal Adenopathy Neurological: Cranial nerves II-XII grossly intact, Neuro grossly intact Psych/Mental Status: Normal Affect, Appropriate Laboratory Results 02/17/20 20:40: WBC 11.4 H, RBC 3.98 L, Hgb 11.2 L, Hct 33.9 L, MCV 85.2, MCH 28.1, MCHC 33.0, RDW Std Deviation 41.8, RDW Coeff of Stuart 13.5, Plt Count 474 H, MPV 9.1, Immature Gran % (Auto) 1.100 H, Neut % (Auto) 89.1 H, Lymph % (Auto) 4.6 L, [place] % (Auto) 4.9, Eos % (Auto) 0.2, Baso % (Auto) 0.1, Absolute Neuts (auto) 10.2 H, Absolute Lymphs (auto) 0.53 L, Nucleated RBC % 0, Differential Comment SEE COMMENT, Diff Path Review May rick Toxic Granulation RARE, Platelet Estimate SLT INC, RBC Morphology N CHROM, Hypochromasia RARE, Anisocytosis RARE 02/17/20 20:45: Sodium 135 L, Potassium 3.5, Chloride 98, Carbon Dioxide 29.0, Anion Gap 8, BUN 11, Creatinine 0.41 L, Estim Creat Clear Calc 146.93, Est GFR (MDRD) Af Amer 211, Est GFR (MDRD) Non-Af 174, BUN/Creatinine Ratio 26.8 H, Glucose 112 H, Calcium 8.2 L, Total Bilirubin 0.50, AST 16, ALT 33, Alkaline Phosphatase 69, Total Protein 5.6 L, Albumin 2.1 L, Globulin 3.5, Albumin/Globulin Ratio 0.6 L, Lipase 133 02/17/20 20:45: Lactic Acid 1.2 02/18/20 07:05: WBC 10.0, RBC 3.65 L, Hgb 10.4 L, Hct 32.0 L, MCV 87.7, MCH 28.5, MCHC 32.5, RDW Std Deviation 43.7, RDW Coeff of Stuart 13.7, Plt Count 432, MPV 9.3, Neut % (Auto) Not Reportable, Absolute Neuts (auto) 9.0 H, Absolute Lymphs (auto) 0.70 L, Total Counted 100, Neutrophils % (Manual) 18 L, Band Neutrophils % 72 H, Lymphocytes % (Manual) 7 L, Monocytes % (Manual) 3, Differential Comment , Diff Path Review May rick Toxic Granulation 2+, Platelet Estimate ADEQUATE, RBC Morphology NORM C+C 02/18/20 07:05: Sodium 138, Potassium 4.0, Chloride 102, Carbon Dioxide 31.0, Anion Gap 5, BUN 11, Creatinine 0.40 L, Estim Creat Clear Calc 148.20, Est GFR (MDRD) Af Amer 218, Est GFR (MDRD) Non-Af 181, BUN/Creatinine Ratio 27.6 H, Glucose 105, Calcium 7.9 L Current Medications Budesonide (Budesonide Ec) 9 mg PO DAILY [facility] Cholestyramine Resin (Questran 4gm Packet) 4 gm PO BID [facility] Dextrose (D50w Syringe) 0 gm IV X1 PRN; Protocol PRN Reason: Hypoglycemia Dicyclomine HCl (Bentyl) 20 mg PO TIDAC [facility] Last Admin: 02/18/20 05:57 Dose: 20 mg Documented by: Enoxaparin Sodium (Lovenox) 40 mg SC DAILY [facility] Estradiol (Estrace (G)) 1 mg PO DAILY [facility] Glucagon () 1 mg IM .X1 PRN PRN Reason: Hypoglycemia Hyoscyamine Sulfate (Levsinex) 0.375 mg PO DAILY [facility] Potassium Chloride 40 meq/ (Sodium Chloride) 1,020 mls @ 50 mls/hr IV .[id number] [facility] Last Admin: 02/18/20 00:41 Dose: 50 mls/hr Documented by: Sodium Chloride () 250 mls @ 15 mls/hr IV .[id number] PRN PRN Reason: Saline Flush Lactobacillus Acidophilus (Acidophilus) 1 tablet PO TID [facility] Last Admin: 02/18/20 05:05 Dose: 1 tablet Documented by: Mesalamine (Lialda) 1.2 gm PO DAILY [facility] Methylprednisolone (Solu-Medrol) 40 mg IV BID [facility] Last Admin: 02/18/20 00:31 Dose: 40 mg Documented by: Morphine Sulfate () 2 mg IV Q3H PRN PRN PRN Reason: Pain Score 6-10/10 Last Admin: 02/18/20 04:58 Dose: 2 mg Documented by: Nutritional Formula (Lactose Free) (Ensure Enlive) 120 ml PO 4X/DAY [facility] Ondansetron HCl (Zofran) 4 mg IV Q8H PRN PRN PRN Reason: NAUSEA/VOMITING Last Admin: 02/18/20 08:32 Dose: 4 mg Documented by: Pantoprazole Sodium (Protonix) 20 mg PO BID [facility] Potassium Chloride (K-Dur) 10 meq PO DAILY [facility] Sodium Chloride () 10 - 40 ml IV UD PRN PRN Reason: SALINE FLUSH Last Admin: 02/18/20 08:32 Dose: 10 ml Documented by: Temazepam (Restoril) 15 mg PO QHS PRN PRN PRN Reason: INSOMNIA STROKE Vital Signs/Narrative: Vital Signs Pulse Ox 02/18/20 07:10 94 Medical Necessity - Tobacco Use Smoking Status: Former smoker Tobacco Use: Non-smoker Assessment/Plan All Active Problems Colitis (Acute) Menorrhagia (Resolved) Intractable abdominal pain (Acute) 1. Acute on chronic lymphocytic colitis, seen on CT abd/pelvis Will continue Solumedrol IV Keep NPO, symptomatic/conservative treatment Will advance diet as tolerated Continue on Budesonide, cholestyramine, Bentyl, Lactobacillus, mesalamine 2. DVT PPx- Lovenox SC Inpatient E&M: 47359 Subs Hosp L2
[2020-02-18] MEDS: Pantoprazole Sodium 20 MG Tablet PO (09:58)
[2020-02-18] MEDS: Mesalamine 1.2 GM Tablet PO (09:58)
[2020-02-18] MEDS: Cholestyramine/Sucrose 4 GM/PACKET PO (09:59)
[2020-02-18] MEDS: Estradiol 1 MG Tablet PO (09:59)
[2020-02-18] MEDS: Budesonide 3 MG CAPSULE.EC 9 MG PO (10:00)
[2020-02-18] MEDS: Enoxaparin 40 MG/0.4 ML Syringe SC (10:08)
[2020-02-18 10:58] LABS: Pathologist Review Reviewed
--- NOTE | 2020-02-18 13:17 | CASEMGMT ---
SHAWN YOUNG Chart Review: Patient was here at [facility] on 02/12-02/14/20 for colitis. Patient returned to [facility] on 02/16 due to increasing abdominal pain. CT of ABD/pelvis showed acute on chronic lymphocytic colitis on 02/17/20. Patient is currently NPO and on IV Solumedrol. See SHAWN YOUNG assessment completed on 02/13/2020. Disposition Plan: Patient to discharge home with family support and follow-up plans in place.
--- NOTE | 2020-02-18 15:25 | PCM.NTREPORT ---
Nutrition Therapy Report - History Nutrition Services has been consulted to:: Conduct nutrition counseling Current diet / nutrition support order:: NPO x day #1 today - Anthropometric Measurements Height:: 5 ft 5 in Weight:: 55.8 kg Body Mass Index (BMI):: 20.5 - Relevant Labs Relevant Labs:: WBC 11.4 K/mm3 (4.4-11.0) H 02/17/20 20:40 RBC 3.65 M/mm3 (4.2-5.4) L 02/18/20 07:05 Hgb 10.4 g/dL (12.0-15.0) L 02/18/20 07:05 Hct 32.0 % (37-47) L 02/18/20 07:05 Plt Count 474 K/mm3 (150-450) H 02/17/20 20:40 Immature Gran % (Auto) 1.100 % (0.0-0.9) H 02/17/20 20:40 Neut % (Auto) 89.1 % (47-70) H 02/17/20 20:40 Lymph % (Auto) 4.6 % (19-41) L 02/17/20 20:40 Absolute Neuts (auto) 9.0 X10^3/uL (2.0-7.7) H 02/18/20 07:05 Absolute Lymphs (auto) 0.70 X10^3/uL (0.83-4.51) L 02/18/20 07:05 Neutrophils % (Manual) 18 % (47-70) L 02/18/20 07:05 Band Neutrophils % 72 % (0-5) H 02/18/20 07:05 Lymphocytes % (Manual) 7 % (19-41) L 02/18/20 07:05 Sodium 135 mmol/L (136-145) L 02/17/20 20:45 Creatinine 0.40 mg/dL (0.55-1.02) L 02/18/20 07:05 BUN/Creatinine Ratio 27.6 RATIO (10-20) H 02/18/20 07:05 Glucose 112 mg/dL (74-106) H 02/17/20 20:45 Calcium 7.9 mg/dL (8.5-10.1) L 02/18/20 07:05 Total Protein 5.6 g/dL (6.4-8.2) L 02/17/20 20:45 Albumin 2.1 g/dL (3.2-5.0) L 02/17/20 20:45 Albumin/Globulin Ratio 0.6 RATIO (0.9-2.4) L 02/17/20 20:45 - Assessment Food / Nutrition-Related History:: Pt is currently NPO x day #1 and is tearful during interview because she knows that she should eat to help rebuild her strength. Pt takes [employer] shake mix at home which she uses as a protein drink. Follows a gluten-free, fructose-free diet & does not use artificial sweeteners. Follows w/ GI specialist for diet/disease management. Pt reports UBW~130 lbs or so but, has been having ongoing diarrhea for 8 days now which has resulted in ~5-7% wt loss despite trying to eat as able. Pt seems to be knowledgable about diet and denies recent colitis flare-up, last one in 2017. Pt will remain NPO for now. +NFPA with mild pro/fat depletion. - Nutrition Diagnosis Problem / Etiology / Signs & Symptoms (PES):: Moderate malnutrition related to acute on chronic GI condition/altered GI function as evideneced by ~5-7% wt loss x past 8 days, decreased intake, increased diarrhea & mild pro/fat depletion. Evidence of Malnutrition Exists:: Yes Moderate PCM:: Acute Illness - Nutrition Intervention Nutrition Prescription:: Maintain NPO until able to advance diet to clears with gradual progression to Regular/gluten-free diet. Ensure Clear with meals as advanced from NPO. - Food / Nutrient Delivery Interventions Summary of nutrition intervention:: NPO for now. Ensure Clear with meals as diet advanced from NPO. Nutrition support ordered as / adjusted to:: No nutrition support; pt is NPO. Nutrition education provided?: Yes - Gradual diet progression when ready for PO & importance ONS for repletion. - MNT Monitoring Further MNT monitoring and evaluation required?: Yes MNT Follow-up in:: 3-5 days
[2020-02-18] MEDS: Potassium Chloride 40 MEQ in 0.9% Normal Saline 1,000 ML 75 MEQ IV (18:47)
[2020-02-18] MEDS: PROGESTERONE, MICRONIZED 100 MG CAPSULE PO (22:22)
[2020-02-18] MEDS: Temazepam 15 MG Capsule PO (22:26)
[2020-02-19 03:35] VITALS: BP 130/75; PULSE 80; RESP 16; TEMP 36.8; O2SAT 95
[2020-02-19] MEDS: Dicyclomine 10 MG Capsule 20 MG PO ×3 (06:25→19:30)
[2020-02-19] MEDS: Morphine 2 MG/ML Syringe IV ×2 (06:42→17:11)
[2020-02-19 07:50] VITALS: O2SAT 94
[2020-02-19] MEDS: Potassium Chloride 40 MEQ in 0.9% Normal Saline 1,000 ML 75 MEQ IV (09:10)
[2020-02-19] MEDS: Estradiol 1 MG Tablet PO (09:13)
[2020-02-19] MEDS: Budesonide 3 MG CAPSULE.EC 9 MG PO (09:13)
[2020-02-19] MEDS: Mesalamine 1.2 GM Tablet PO (09:13)
[2020-02-19] MEDS: 0.9% Saline Lock 10 ML Syringe IV ×5 (09:37→19:31)
[2020-02-19 09:40] VITALS: BP 121/85; PULSE 86; RESP 16; TEMP 36.5; O2SAT 97
[2020-02-19] MEDS: HYDROmorphone 0.5 MG/0.5 ML SYRINGE IV (09:42)
[2020-02-19 12:17] LABS: Pathologist Review Reviewed
[2020-02-19] MEDS: Enoxaparin 40 MG/0.4 ML Syringe SC (13:24)
[2020-02-19] MEDS: Famotidine 200 MG/20 ML MDV 20 MG in 0.9% Normal Saline (Pres. free 8 ML 300 MG IV (13:56)
--- NOTE | 2020-02-19 15:36 | PN_ITS ---
Patient Problems: Active and Suspected Problems Intractable abdominal pain (Acute) Reason for Visit: Follow-up on acute on chronic colitis Subjective: Patient was seen and examined. She complains of bloatedness with generalized abdominal distention. Still having diarrhea. Denies any fever or chills. Objective: Physical exam: General: Alert, Oriented x3, Cooperative, - - in mild distress HEENT: Atraumatic, PERRLA, EOMI, Normocephalic Oral: Moist Mucosa Neck: Supple Lungs: Clear to auscultation, Normal air movement Cardiovascular: Regular rate, Regular Rhythm, Normal S1, Normal S2, No murmurs Abdomen: Bowel Sounds Present, Soft, Non-Distended, No Hepato-splenomegaly, Tender - generalised, mild guarding, no rebound tenderness Extremities: No edema Skin: No rashes Musculoskeletal: No Tenderness to Palpation of Joints or Extremities Lymphatic: No Cervical, Supraclavicular, or Inguinal Adenopathy Neurological: Cranial nerves II-XII grossly intact, Neuro grossly intact Psych/Mental Status: Normal Affect, Appropriate Vitals/I&O's: Vital Signs Temp Pulse Resp BP Pulse Ox 97.7 F L 86 16 121/85 H 97 02/19/20 09:40 02/19/20 09:40 02/19/20 09:40 02/19/20 09:40 02/19/20 09:40 Oxygen Delivery Method Room Air Weight: 55.8 kg Body Mass Index (BMI) 20.5 Intake and Output for Last 24 Hours 02/17/20 02/18/20 02/19/20 23:59 23:59 23:59 Intake Total 1000 / 1000 1570.00 / 1645.00 1420 / 1420 Output Total 1300 / 1300 Balance 1000 / 1000 270.00 / 345.00 1420 / 1420 Laboratory Results 02/18/20 07:05: Diff Path Review Reviewed Current Medications Budesonide (Budesonide Ec) 9 mg PO DAILY [facility] Last Admin: 02/19/20 09:13 Dose: 9 mg Documented by: Cholestyramine Resin (Questran 4gm Packet) 4 gm PO BID [facility] Last Admin: 02/18/20 20:54 Dose: Not Given Documented by: Dextrose (D50w Syringe) 0 gm IV X1 PRN; Protocol PRN Reason: Hypoglycemia Dicyclomine HCl (Bentyl) 20 mg PO TIDAC [facility] Last Admin: 02/19/20 13:24 Dose: 20 mg Documented by: Enoxaparin Sodium (Lovenox) 40 mg SC DAILY [facility] Last Admin: 02/19/20 13:24 Dose: 40 mg Documented by: Estradiol (Estrace (G)) 1 mg PO DAILY [facility] Last Admin: 02/19/20 09:13 Dose: 1 mg Documented by: Glucagon () 1 mg IM .X1 PRN PRN Reason: Hypoglycemia Potassium Chloride 40 meq/ (Sodium Chloride) 1,020 mls @ 75 mls/hr IV .[id number] [facility] Last Admin: 02/19/20 09:10 Dose: 75 mls/hr Documented by: Sodium Chloride () 250 mls @ 15 mls/hr IV .[id number] PRN PRN Reason: Saline Flush Famotidine 20 mg/ Sodium (Chloride) 10 mls @ 300 mls/hr IV Q12 [facility] Last Admin: 02/19/20 13:56 Dose: 300 mls/hr Documented by: Lactobacillus Acidophilus (Acidophilus) 1 tablet PO TID [facility] Last Admin: 02/19/20 13:26 Dose: 1 tablet Documented by: Mesalamine (Lialda) 1.2 gm PO DAILY [facility] Last Admin: 02/19/20 09:13 Dose: 1.2 gm Documented by: Methylprednisolone (Solu-Medrol) 40 mg IV BID [facility] Last Admin: 02/19/20 09:13 Dose: 40 mg Documented by: Morphine Sulfate () 2 mg IV Q3H PRN PRN PRN Reason: Pain Score 6-10/10 Last Admin: 02/19/20 06:42 Dose: 2 mg Documented by: Nutritional Formula (Lactose Free) (Ensure Enlive) 120 ml PO 4X/DAY [facility] Last Admin: 02/19/20 13:22 Dose: Not Given Documented by: Ondansetron HCl (Zofran) 4 mg IV Q8H PRN PRN PRN Reason: NAUSEA/VOMITING Last Admin: 02/18/20 08:32 Dose: 4 mg Documented by: Potassium Chloride (K-Dur) 10 meq PO DAILY [facility] Last Admin: 02/18/20 09:59 Dose: 10 meq Documented by: Simethicone (Mylicon) 80 mg PO TIDPC [facility] Sodium Chloride () 10 - 40 ml IV UD PRN PRN Reason: SALINE FLUSH Last Admin: 02/19/20 13:56 Dose: 20 ml Documented by: Temazepam (Restoril) 15 mg PO QHS PRN PRN PRN Reason: INSOMNIA Last Admin: 02/18/20 22:26 Dose: 15 mg Documented by: Medical Necessity - Tobacco Use Smoking Status: Former smoker Tobacco Use: Non-smoker Assessment/Plan All Active Problems Colitis (Acute) Menorrhagia (Resolved) Intractable abdominal pain (Acute) 1. Acute on chronic lymphocytic colitis, seen on CT abd/pelvis Will increase Solumedrol IV to q8h DC PPI, advance diet as can be tolerated Continue on Budesonide, cholestyramine, Bentyl, Lactobacillus, mesalamine 2. DVT PPx- Lovenox SC Inpatient E&M: 80848 Subs Hosp L2
[2020-02-19 15:40] VITALS: BP 130/91; PULSE 81; RESP 18; TEMP 36.1; O2SAT 99
[2020-02-19] MEDS: Cholestyramine/Sucrose 4 GM/PACKET PO (17:01)
--- NOTE | 2020-02-19 17:55 | PCM.DC.SUM ---
Discharge Date and Diagnosis Date of Admission: 02/17/20 Date of Discharge: 02/19/20 - Primary Discharge Diagnosis Active and Suspected Problems Intractable abdominal pain (Acute) Acute on chronic lymphocytic colitis - Secondary Discharge Diagnosis Chronic Problems Lymphocytic colitis (Chronic) Postmenopausal (Chronic) Hospital Course and Treatment Imaging Results: Clinical Impression(s) from Imaging Studies Abdomen/Pelvis CT 02/17/20 20:25 IMPRESSION: . The diffuse colitis pattern is again noted. There is colonic dilation, wall thickening and enhancement most significant within the cecum and ascending colon. There is also involvement of the transverse colon and proximal sigmoid colon. There is interval worsening of the involvement of the cecum and ascending colon. There is interval improvement of the involvement of the sigmoid colon. New small amount of free fluid within the cul-de-sac New small bilateral pleural effusions and mild linear subsegmental atelectasis Stable left sacroiliitis mild spondylosis thoracic and lumbar spine Electronically Signed: Deven Dey, at 23:03 EDT Tel , Service support , None Operations: None Procedures: None Summary of Care Provided: The patient is a 49 year old F past medical history of lymphocytic colitis who comes in with excruciating diffuse abdominal pain. Patient was recently admitted to the hospital on 02/12/20 and discharged on 02/14/20. She describes the pain as sharp, achy and dull. Does not radiate. Worse with bowel movement. She had multiple bowel movement about 6-7 times on the day of admission with nausea. CT scan of the abdomen and pelvis that showed worsening colitis more in the cecal and sigmoid region with some interval improvement in the descending colon. Patient was admitted to the medical surgical floor, had on IV fluids, kept n.p.o., continued on her budesonide, IV steroids, cholestyramine, Bentyl with some improvement. She continued to have diarrhea with couple of episodes of bloody stools. Discussed with her primary lead cargo mover, Dr. Michael on 02/19/20, who recommended transfer to the [facility] IBD team on main campus. The transfer line was called and patient was accepted. Subjective: See progress note of the day. Objective: See progress note of the day. - Physical Exam Vitals/I&O's: Vital Signs Temp Pulse Resp BP Pulse Ox 97.0 F L 81 18 130/91 H 99 02/19/20 15:40 02/19/20 15:40 02/19/20 15:40 02/19/20 15:40 02/19/20 15:40 Oxygen Delivery Method Room Air Weight: 55.8 kg Body Mass Index (BMI) 20.5 Intake and Output for Last 24 Hours 02/17/20 02/18/20 02/19/20 23:59 23:59 23:59 Intake Total 1000 / 1000 1570.00 / 1645.00 1530 / 1530 Output Total 1300 / 1300 Balance 1000 / 1000 270.00 / 345.00 1530 / 1530 Laboratory Results 02/18/20 07:05: Diff Path Review Reviewed Current Medications Budesonide (Budesonide Ec) 9 mg PO DAILY [facility] Last Admin: 02/19/20 09:13 Dose: 9 mg Documented by: Cholestyramine Resin (Questran 4gm Packet) 4 gm PO BID [facility] Last Admin: 02/19/20 17:01 Dose: 4 gm Documented by: Dextrose (D50w Syringe) 0 gm IV X1 PRN; Protocol PRN Reason: Hypoglycemia Dicyclomine HCl (Bentyl) 20 mg PO TIDAC [facility] Last Admin: 02/19/20 13:24 Dose: 20 mg Documented by: Enoxaparin Sodium (Lovenox) 40 mg SC DAILY [facility] Last Admin: 02/19/20 13:24 Dose: 40 mg Documented by: Estradiol (Estrace (G)) 1 mg PO DAILY [facility] Last Admin: 02/19/20 09:13 Dose: 1 mg Documented by: Glucagon () 1 mg IM .X1 PRN PRN Reason: Hypoglycemia Potassium Chloride 40 meq/ (Sodium Chloride) 1,020 mls @ 75 mls/hr IV .[id number] [facility] Last Admin: 02/19/20 09:10 Dose: 75 mls/hr Documented by: Sodium Chloride () 250 mls @ 15 mls/hr IV .[id number] PRN PRN Reason: Saline Flush Famotidine 20 mg/ Sodium (Chloride) 10 mls @ 300 mls/hr IV Q12 [facility] Last Infusion: 02/19/20 13:58 Dose: Infused Documented by: Lactobacillus Acidophilus (Acidophilus) 1 tablet PO TID [facility] Last Admin: 02/19/20 13:26 Dose: 1 tablet Documented by: Mesalamine (Lialda) 1.2 gm PO DAILY [facility] Last Admin: 02/19/20 09:13 Dose: 1.2 gm Documented by: Methylprednisolone (Solu-Medrol) 40 mg IV Q8 [facility] Morphine Sulfate () 2 mg IV Q3H PRN PRN PRN Reason: Pain Score 6-10/10 Last Admin: 02/19/20 17:11 Dose: 2 mg Documented by: Nutritional Formula (Lactose Free) (Ensure Enlive) 120 ml PO 4X/DAY [facility] Last Admin: 02/19/20 16:37 Dose: Not Given Documented by: Ondansetron HCl (Zofran) 4 mg IV Q8H PRN PRN PRN Reason: NAUSEA/VOMITING Last Admin: 02/18/20 08:32 Dose: 4 mg Documented by: Potassium Chloride (K-Dur) 10 meq PO DAILY [facility] Last Admin: 02/19/20 16:36 Dose: Not Given Documented by: Simethicone (Mylicon) 80 mg PO TIDPC [facility] Last Admin: 02/19/20 15:50 Dose: 80 mg Documented by: Sodium Chloride () 10 - 40 ml IV UD PRN PRN Reason: SALINE FLUSH Last Admin: 02/19/20 17:11 Dose: 10 ml Documented by: Temazepam (Restoril) 15 mg PO QHS PRN PRN PRN Reason: INSOMNIA Last Admin: 02/18/20 22:26 Dose: 15 mg Documented by: Discharge Diet: No Restrictions Discharge Activity: Return to Normal Activity Home Medications: Medications to take at Discharge Estradiol 1 mg PO DAILY 02/09/20 Dicyclomine HCl [Bentyl] 20 mg PO TIDAC #20 cap 02/11/20 Progesterone, Micronized [Progesterone] 100 mg PO QHS 02/13/20 Budesonide [Budesonide EC] 9 mg PO DAILY #30 capsule.ec 02/14/20 Cholestyramine (with Sugar) [Questran Packet] 4 gm PO BID #60 powd.pack 02/14/20 Lactobacillus Acidophilus [Acidophilus] 1 tab PO TID #90 tab 02/14/20 Ondansetron [Zofran Odt] 4 mg PO Q8H PRN PRN #10 tab 02/14/20 Pantoprazole Sodium [Protonix] 20 mg PO BID #60 tab 02/14/20 Prednisone [Deltasone] 40 mg PO DAILY #28 tab 02/14/20 Temazepam [Restoril] 15 mg PO QHS PRN PRN #10 cap 02/14/20 Hyoscyamine Sulfate [Hyoscyamine Sulfate ER] 0.375 mg PO DAILY 02/17/20 Mesalamine [Lialda] 1.2 gm PO DAILY 02/17/20 Potassium Chloride 10 meq PO DAILY 02/17/20 Primary Care Physician: Lazaro Yun MD [Primary Care Provider] - Please follow up with your Primary Care Physician in: within 1-2 weeks Disposition: Acute care Hospital Minutes spent on discharge:: 40 Patient Condition:: Stable Medical Necessity - Tobacco Use Smoking Status: Former smoker Tobacco Use: Non-smoker Meaningful Use Info Meaningful Use Diagnoses (Choose all that apply): None applicable Inpatient E&M: 34658 Disch Hosp
[2020-02-19] MEDS: Morphine 2 MG/ML Syringe 1 MG IV (19:31)
== END 2020-02-19 19:50 | disposition short-term general hospital (02) | DRG 392 ==
LOC: ED 20:35 → MS3 23:40
PROVIDERS: Admitting Provider Hospitalist; Emergency Provider Emergency Medicine; PCP Family Medicine; Referring Provider Hospitalist; Visit Provider Internal Medicine
DX: K52.832 Lymphocytic colitis (principal); J98.11 Atelectasis; Z87.891 Personal history of nicotine dependence; Z79.899 Other long term (current) drug therapy; R60.0 Localized edema; G47.00 Insomnia, unspecified; N95.9 Unspecified menopausal and perimenopausal disorder; K21.9 Gastro-esophageal reflux disease without esophagitis
CPT/HCPCS: 36415; 74177; 80048; 80053; 83605; 83690; 85025; 96361; 96374; 96375; 97802; 99251; 99284; J7030; Q9967; A4216; G0463; J2405; J3490

== ENCOUNTER → 2020-06-04 | Outpatient (CLI) | payer BC, SELFPAY ==
[2020-02-18 15:31] VITALS: BMI 20.5
[2020-06-04 12:31] LABS: Hematocrit 40.2 % (37-47); Hemoglobin 12.6 g/dL (12.0-15.0); Mean Corp Hgb Conc 31.3 g/dL (32-36); Mean Corpuscular Hgb 28.3 pg (27.0-32.0); Mean Corpuscular Volume 90.3 fL (81-99); Mean Platelet Vol. 10.1 fl (6.2-12.0); Platelet Count 297 K/mm3 (150-450); RBC Distribution Width CV 12.1 % (11.6-14.6); RBC Distribution Width SD 40.3 fl (35.1-43.9); Red Blood Count 4.45 M/mm3 (4.2-5.4); White Blood Count 5.5 K/mm3 (4.4-11.0)
[2020-06-04 12:50] LABS: T3 Total - Triiodothyronine 1.24 ng/mL (0.6-1.81); Vitamin B12 1156 pg/mL (211-911); Vitamin D,25 Hydroxy 35.8 ng/mL
[2020-06-04 13:34] LABS: ALB/GLOB Ratio 1.1 RATIO (0.9-2.4); AST(SGOT) 25 U/L (15-37); Alanine Aminotransfer ALT/SGPT 58 U/L (13-56); Alkaline Phosphatase 61 U/L (45-117); Anion Gap 5 (5-15); BUN 15 mg/dL (7-18); BUN/Creat Ratio 19.4 RATIO (10-20); Calcium,Total 9.1 mg/dL (8.5-10.1); Chloride 104 mmol/L (98-107); Creatinine, Serum 0.77 mg/dL (0.55-1.02); EST Glomerular Filtration Rate 84 mL/min (>60); Est Glom Filt Rate - Afr Amer 101 mL/min (>60); Ferritin 11 ng/mL (8-252); Free T3 3.1 pg/mL (2.18-3.98); Globulin 3.6 g/dL (2.2-4.2); Glucose 84 mg/dL (74-106); Iron 52 ug/dL (50-170); Iron Binding Capacity,Total 438 ug/dL (250-450); Magnesium 2.1 mg/dL (1.6-2.6); PERCENT IRON SATURATION 11.9 % (15.0-55.0); Potassium 4.1 mmol/L (3.5-5.1); Protein, Total 7.6 g/dL (6.4-8.2); Sodium Level 141 mmol/L (136-145); T4 Free Direct 1.07 ng/dL (0.76-1.46)
[2020-06-06 11:48] LABS: Zinc, Plasma or Serum 110 ug/dL (56-134)
[2020-06-09 11:21] LABS: HPV APTIMA, High Risk Negative (Negative)
== END | disposition home or self-care (01) ==
LOC: LAB 13:47 → LABSPEC 13:48
PROVIDERS: PCP Family Medicine; Referring Provider Obstetrics & Gynecology; Visit Provider Obstetrics & Gynecology
DX: L65.9 Nonscarring hair loss, unspecified (principal); R63.5 Abnormal weight gain; E55.9 Vitamin D deficiency, unspecified; Z12.4 Encounter for screening for malignant neoplasm of cervix
CPT/HCPCS: 36415; 80053; 82306; 82607; 82728; 82746; 83540; 83550; 83735; 84439; 84443; 84480; 84481; 84630; 85027; 87624; 88175; G0145

== ENCOUNTER → 2020-06-06 | Outpatient (CLI) | payer BC, SELFPAY ==
[2020-02-18 15:31] VITALS: BMI 20.5
== END | disposition home or self-care (01) ==
LOC: LAB 13:32
PROVIDERS: PCP Family Medicine; Referring Provider Obstetrics & Gynecology; Visit Provider Obstetrics & Gynecology
DX: L56.9 Acute skin change due to ultraviolet radiation, unspecified (principal); E55.9 Vitamin D deficiency, unspecified; R63.5 Abnormal weight gain

== ENCOUNTER → 2020-08-06 | Outpatient (CLI) | payer BC, SELFPAY ==
[2020-02-18 15:31] VITALS: BMI 20.5
[2020-08-06 12:39] LABS: Homocysteine 5.4 umol/L (3.2-10.7)
== END | disposition home or self-care (01) ==
LOC: LAB 11:44
PROVIDERS: PCP Family Medicine; Referring Provider Obstetrics & Gynecology; Visit Provider Obstetrics & Gynecology
DX: K90.9 Intestinal malabsorption, unspecified (principal); Z79.899 Other long term (current) drug therapy
CPT/HCPCS: 36415; 83090; 83921

== ENCOUNTER 2021-01-08 16:56 | Outpatient (RCR) | payer BC, SELFPAY ==
[2020-02-18 15:31] VITALS: BMI 20.5
[2021-01-08] MEDS: COVID-19 VACC, MRNA(PFIZER)/PF 30 MCG/0.3 ML SYRINGE IM (14:30)
[2021-01-29] MEDS: COVID-19 VACC, MRNA(PFIZER)/PF 30 MCG/0.3 ML SYRINGE IM (11:52)
== END 2021-01-08 23:59 ==
LOC: IMMUN 16:56
PROVIDERS: PCP Family Medicine; Visit Provider Family Medicine
DX: Z23 Encounter for immunization (principal)
CPT/HCPCS: 0001A; 0002A; 91300

== ENCOUNTER → 2021-01-29 | Outpatient (CLI) | payer BC, SELFPAY ==
[2020-02-18 15:31] VITALS: BMI 20.5
[2021-01-29 13:52] LABS: Hematocrit 40.7 % (37-47); Hemoglobin 12.9 g/dL (12.0-15.0); Mean Corp Hgb Conc 31.7 g/dL (32-36); Mean Corpuscular Hgb 29.4 pg (27.0-32.0); Mean Corpuscular Volume 92.7 fL (81-99); Mean Platelet Vol. 10.7 fl (6.2-12.0); Platelet Count 297 K/mm3 (150-450); RBC Distribution Width CV 13.1 % (11.6-14.6); Red Blood Count 4.39 M/mm3 (4.2-5.4); White Blood Count 5.2 K/mm3 (4.4-11.0)
[2021-01-29 14:27] LABS: ALB/GLOB Ratio 1.2 RATIO (0.9-2.4); AST(SGOT) 16 U/L (15-37); Alanine Aminotransfer ALT/SGPT 31 U/L (13-56); Alkaline Phosphatase 91 U/L (45-117); Anion Gap 1 (5-15); BUN 21 mg/dL (7-18); BUN/Creat Ratio 29.4 RATIO (10-20); Calcium,Total 9.3 mg/dL (8.5-10.1); Chloride 105 mmol/L (98-107); Cholesterol 232 mg/dL (200); Creatinine, Serum 0.72 mg/dL (0.55-1.02); EST Glomerular Filtration Rate 91 mL/min (>60); Est Glom Filt Rate - Afr Amer 111 mL/min (>60); Ferritin 74 ng/mL (8-252); Globulin 3.4 g/dL (2.2-4.2); Glucose 61 mg/dL (74-106); High Density Lipoprotein 84 mg/dL; Magnesium 1.8 mg/dL (1.6-2.6); Potassium 3.6 mmol/L (3.5-5.1); Prealbumin 19.3 mg/dL (20.0-40.0); Protein, Total 7.4 g/dL (6.4-8.2); Sodium Level 139 mmol/L (136-145)
== END | disposition home or self-care (01) ==
PROVIDERS: PCP Family Medicine; Referring Provider Family Medicine; Visit Provider Family Medicine
DX: Z00.00 Encounter for general adult medical examination without abnormal findings (principal); E61.1 Iron deficiency; E46 Unspecified protein-calorie malnutrition
CPT/HCPCS: 36415; 80053; 82465; 82728; 83718; 83735; 84134; 85027

== ENCOUNTER → 2021-02-04 15:29 | Outpatient (CLI) | payer BC, SELFPAY ==
[2020-02-18 15:31] VITALS: BMI 20.5
--- NOTE | 2021-02-04 15:32 | BI_ITS ---
MAMMOGRAPHY - BILATERAL SCREENING REASON FOR EXAM: Female, 50 years old. Routine annual screening examination. PERTINENT HISTORY: Non-contributory. TECHNIQUE: Digital bilateral breast kofi (3D mammographic acquisition) in the CC and MLO projections. 2-D mediolateral oblique (MLO) and craniocaudad (CC) views of both breasts were obtained. CAD: Full Field Digital Mammography with Computer Added Detection was performed. COMPARISON: Comparison is made with prior study of 01/30/2018 and 11/10/2016. FINDINGS: Breast Composition: The breasts are heterogeneously dense, which may obscure small masses. There are no dominant masses or suspicious calcifications. Stable 6 mm well-defined nodule in the central medial aspect of the left breast. No other significant abnormalities are identified. There has been no significant change since the prior study. BI/SCREENING MAMM (CAD), BILAT IMPRESSION: Stable bilateral screening mammogram. Yearly follow-up mammogram recommended. (A) ASSESSMENT CATEGORY: BIRADS Category 2: Benign. A letter regarding these results will be sent to the patient by the facility within 30 days. Approximately 10% of breast cancers are not detected by mammography. A normal mammogram should not delay biopsy of a clinically suspicious abnormality. [id number] Electronically Signed: Josiah Garcia MD at 8:34 EDT , Service support ,
== END ==
PROVIDERS: PCP Family Medicine; Referring Provider Family Medicine; Visit Provider Family Medicine
DX: Z12.31 Encounter for screening mammogram for malignant neoplasm of breast (principal)
CPT/HCPCS: 77067

== ENCOUNTER 2021-11-05 14:12 | Outpatient (CLI) | payer BC, SELFPAY | END 2021-11-05 23:59 | disposition short-term general hospital (02) | LOC: LABSPEC 14:13 | PROVIDERS: PCP Family Medicine; Referring Provider Physician Assistant; Visit Provider Physician Assistant | DX: Z11.52 Encounter for screening for COVID-19 (principal) | CPT/HCPCS: 87635; U0003; U0005 ==

== ENCOUNTER 2022-01-20 10:49 | Outpatient (CLI) | payer BC, SELFPAY ==
[2022-01-20 11:12] LABS: Hemoglobin 13.7 g/dL (12.0-15.0); Mean Corp Hgb Conc 32.6 g/dL (32-36); Mean Corpuscular Hgb 29.1 pg (27.0-32.0); Mean Corpuscular Volume 89.4 fL (81-99); Mean Platelet Vol. 10.1 fl (6.2-12.0); Platelet Count 288 K/mm3 (150-450); RBC Distribution Width SD 42.9 fl (35.1-43.9); White Blood Count 6.1 K/mm3 (4.4-11.0)
[2022-01-20 11:57] LABS: Vitamin D,25 Hydroxy 27.9 ng/mL
[2022-01-20 12:04] LABS: ALB/GLOB Ratio 1.1 RATIO (0.9-2.4); AST(SGOT) 23 U/L (15-37); Alanine Aminotransfer ALT/SGPT 34 U/L (13-56); Albumin, Serum 4.2 g/dL (3.2-5.0); Alkaline Phosphatase 109 U/L (45-117); Anion Gap 4 (5-15); BUN 11 mg/dL (7-18); BUN/Creat Ratio 13.7 RATIO (10-20); Calcium,Total 9.6 mg/dL (8.5-10.1); Chloride 105 mmol/L (98-107); EST Glomerular Filtration Rate 79 mL/min (>60); Est Glom Filt Rate - Afr Amer 96 mL/min (>60); Estradiol < 11.0 pg/mL; Globulin 3.8 g/dL (2.2-4.2); Glucose 91 mg/dL (74-106); Potassium 4.2 mmol/L (3.5-5.1); Sodium Level 138 mmol/L (136-145)
[2022-01-21 18:31] LABS: Sex Hormone-binding Globulin 70.8 nmol/L (17.3-125.0)
== END 2022-01-20 23:59 | disposition home or self-care (01) ==
LOC: WOBLAB 10:50
PROVIDERS: PCP Family Medicine; Visit Provider Obstetrics & Gynecology
DX: Z13.228 Encounter for screening for other metabolic disorders (principal); N91.2 Amenorrhea, unspecified
CPT/HCPCS: 36415; 80053; 82306; 82670; 84270; 84403; 85027

== ENCOUNTER 2022-02-05 10:01 | Outpatient (CLI) | payer BC, SELFPAY ==
--- NOTE | 2022-02-05 10:03 | BI_ITS ---
MAMMOGRAPHY - BILATERAL SCREENING REASON FOR EXAM: Female, 51 years old. Routine annual screening examination. PERTINENT HISTORY: Non-contributory. TECHNIQUE: Digital bilateral breast eliu (3D mammographic acquisition) in the CC and MLO projections. 2-D mediolateral oblique (MLO) and craniocaudad (CC) views of both breasts were obtained. CAD: Full Field Digital Mammography with Computer Added Detection was performed. COMPARISON: Comparison is made with prior study dated 02/04/2021 and 01/30/2018. FINDINGS: Breast Composition: The breasts are heterogeneously dense, which may obscure small masses. There are no dominant masses or suspicious calcifications. No other significant abnormalities are identified. There has been no significant change since the prior study. BI/SCRN MAMM (CAD)W/ELIU BILAT IMPRESSION: Stable bilateral screening mammogram. Yearly follow-up mammogram recommended. (A) ASSESSMENT CATEGORY: BIRADS Category 1: Negative. A letter regarding these results will be sent to the patient by the facility within 30 days. Approximately 10% of breast cancers are not detected by mammography. A normal mammogram should not delay biopsy of a clinically suspicious abnormality. [id number] Electronically Signed: Josiah Garcia MD at 10:54 EDT ,
== END 2022-02-05 23:59 | disposition home or self-care (01) ==
LOC: OPBI 10:01
PROVIDERS: PCP Family Medicine; Visit Provider Obstetrics & Gynecology
DX: Z12.31 Encounter for screening mammogram for malignant neoplasm of breast (principal)
CPT/HCPCS: 77063; 77067

== ENCOUNTER → 2022-10-29 | Outpatient (CLI) | payer BC, SELFPAY ==
[2022-10-29 18:13] LABS: Vitamin B12 548 pg/mL (211-911)
[2022-10-29 18:22] LABS: ALB/GLOB Ratio 1.2 RATIO (0.9-2.4); AST(SGOT) 20 U/L (15-37); Alanine Aminotransfer ALT/SGPT 31 U/L (13-56); Alkaline Phosphatase 86 U/L (45-117); Anion Gap 10 (5-15); BUN 20 mg/dL (7-18); BUN/Creat Ratio 24.2 RATIO (10-20); Calcium,Total 9.4 mg/dL (8.5-10.1); Chloride 105 mmol/L (98-107); Cholesterol 253 mg/dL (200); Creatinine, Serum 0.83 mg/dL (0.55-1.02); EST Glomerular Filtration Rate 77 mL/min (>60); Est Glom Filt Rate - Afr Amer 93 mL/min (>60); Ferritin 48 ng/mL (8-252); Globulin 3.4 g/dL (2.2-4.2); Glucose 89 mg/dL (74-106); High Density Lipoprotein 103 mg/dL; Potassium 4.1 mmol/L (3.5-5.1); Prealbumin 22.3 mg/dL (20.0-40.0); Protein, Total 7.4 g/dL (6.4-8.2); Sodium Level 141 mmol/L (136-145)
== END | disposition home or self-care (01) ==
LOC: MTLAB 15:56
PROVIDERS: PCP Family Medicine; Referring Provider Family Medicine; Visit Provider Family Medicine
DX: E46 Unspecified protein-calorie malnutrition (principal); E61.1 Iron deficiency; Z90.49 Acquired absence of other specified parts of digestive tract; Z15.89 Genetic susceptibility to other disease
CPT/HCPCS: 36415; 80053; 82465; 82607; 82728; 83718; 84134

== ENCOUNTER → 2023-02-11 | Outpatient (CLI) | payer OTHER, SELFPAY ==
--- NOTE | 2023-02-11 09:50 | BI_ITS ---
MAMMOGRAPHY - BILATERAL SCREENING REASON FOR EXAM: Female, 52 years old. Routine annual screening examination. PERTINENT HISTORY: Non-contributory. TECHNIQUE: Digital bilateral breast eliu (3D mammographic acquisition) in the CC and MLO projections. 2-D mediolateral oblique (MLO) and craniocaudad (CC) views of both breasts were obtained. CAD: Full Field Digital Mammography with Computer Added Detection was performed. COMPARISON: Comparison is made with prior examination February 05, 2022 and February 04, 2021. FINDINGS: Breast Composition: The breasts are heterogeneously dense, which may obscure small masses. There are no dominant masses or suspicious calcifications. No other significant abnormalities are identified. There has been no significant change since the prior study. BI/SCRN MAMM (CAD)W/ELIU BILAT IMPRESSION: Stable bilateral screening mammogram. Yearly follow-up mammogram recommended. (A) ASSESSMENT CATEGORY: BIRADS Category 1: Negative. A letter regarding these results will be sent to the patient by the facility within 30 days. Approximately 10% of breast cancers are not detected by mammography. A normal mammogram should not delay biopsy of a clinically suspicious abnormality. [id number] Electronically Signed: Josiah Garcia MD at 11:15 EDT ,
== END | disposition home or self-care (01) ==
PROVIDERS: PCP Family Medicine; Referring Provider Obstetrics & Gynecology Gynecology; Visit Provider Obstetrics & Gynecology Gynecology
DX: Z12.31 Encounter for screening mammogram for malignant neoplasm of breast (principal)
CPT/HCPCS: 77063; 77067

== ENCOUNTER → 2024-02-14 | Outpatient (CLI) | payer OTHER, SELFPAY ==
--- NOTE | 2024-02-14 09:44 | BI_ITS ---
MAMMOGRAPHY - BILATERAL SCREENING REASON FOR EXAM: Female, 53 years old. Routine annual screening examination. PERTINENT HISTORY: Non-contributory. TECHNIQUE: Digital bilateral breast eliu (3D mammographic acquisition) in the CC and MLO projections. 2-D mediolateral oblique (MLO) and craniocaudad (CC) views of both breasts were obtained. CAD: Full Field Digital Mammography with Computer Added Detection was performed. COMPARISON: Comparison is made with prior study dated February 11, 2023 and February 05, 2022. FINDINGS: Breast Composition: The breasts are heterogeneously dense, which may obscure small masses. There are no dominant masses or suspicious calcifications. No other significant abnormalities are identified. There has been no significant change since the prior study. BI/SCRN MAMM (CAD)W/ELIU BILAT IMPRESSION: Stable bilateral screening mammogram. Yearly follow-up mammogram recommended. (A) ASSESSMENT CATEGORY: BIRADS Category 1: Negative. A letter regarding these results will be sent to the patient by the facility within 30 days. Approximately 10% of breast cancers are not detected by mammography. A normal mammogram should not delay biopsy of a clinically suspicious abnormality. [id number] Electronically Signed: Josiah Garcia MD at 11:15 EDT ,
== END | disposition home or self-care (01) ==
LOC: OPBI 09:43
PROVIDERS: PCP Family Medicine; Referring Provider Obstetrics & Gynecology Gynecology; Visit Provider Obstetrics & Gynecology Gynecology
DX: Z12.31 Encounter for screening mammogram for malignant neoplasm of breast (principal)
CPT/HCPCS: 77063; 77067

== ENCOUNTER 2024-10-27 05:35 | Emergency (ER) | payer OTHER, SELFPAY ==
[2024-10-27 05:36] VITALS: PULSE 93; RESP 17; TEMP 36.6; O2SAT 97; BMI 23.6
[2024-10-27 05:41] VITALS: BP 128/84; PULSE 98; RESP 17; TEMP 36.6; O2SAT 100
[2024-10-27 06:02] LABS: Absolute Lymphocyte Count 0.46 X10^3/uL (0.83-4.51); Absolute Neutrophil Count 9.7 X10^3/uL (2.0-7.7); Basophil# 0.06 X10^3/uL; Basophil% 0.6 % (0-1); Eosinophil# 0.16 X10^3/uL; Eosinophils% 1.5 % (0-5); Hematocrit 45.6 % (37-47); Hemoglobin 15.1 g/dL (12.0-15.0); Lymphocyte # 0.46 X10^3/ul (0.83-4.51); Lymphocyte % 4.3 % (19-41); Mean Corp Hgb Conc 33.1 g/dL (32-36); Mean Corpuscular Hgb 29.4 pg (27.0-32.0); Mean Corpuscular Volume 88.7 fL (81-99); Monocyte# 0.23 X10^3/uL; Monocyte% 2.2 % (0-10); NRBC Flagged by Analyzer 0 % (0-5); Neutrophil # 9.72 X10^3/uL (2.7-7.7); Neutrophil % 91.1 % (47-70); POSITIVE DIFFERENTIAL YES; Platelet Count 294 K/mm3 (150-450); RBC Distribution Width CV 12.4 % (11.6-14.6); RBC Distribution Width SD 40.8 fl (35.1-43.9); Red Blood Count 5.14 M/mm3 (4.2-5.4); White Blood Count 10.7 K/mm3 (4.4-11.0)
[2024-10-27] MEDS: Ondansetron 4 MG/2 ML Vial IV (06:15)
[2024-10-27] MEDS: 0.9% Normal Saline (1000mL) 1,000 ML 999 ML IV ×2 (06:15→08:04)
[2024-10-27] MEDS: Morphine 4 MG/ML Syringe IV (06:15)
--- NOTE | 2024-10-27 06:18 | ED.VIS.GI ---
HPI HPI - GI History of Present Illness Chief Complaint: Nausea/Vomiting/Diarrhea Informant: patient Narrative Narrative: Patient is a 53-year-old female with history of lymphocytic colitis status post total colectomy presenting with nausea, vomiting and significant increase in her ostomy output. Patient states she started feel sick last night. She then developed nausea and vomiting with multiple episodes. She states her ileostomy bag was starting to fill up every 15 minutes and she had [employer] multiple times. She denies any blood in her vomit or her stool. She had an episode of syncope versus near syncope when she was coming back from the bathroom. Her did catch her so she did not injure herself. She states that she was having chills at that time. She denies any new foods, eating anything that would have caused gastroenteritis or sick contacts. No fevers reported. Is having relatively severe crampy abdominal pain. Denies any urinary symptoms. No other complaints or concerns at this time. PFSH PFS Medical History Ulcerative colitis Home Medications ?Medication ?Instructions ?Recorded ?Last Taken ?Type ondansetron 4 mg disintegrating 4 mg PO Q8H PRN PRN Nausea #10 tabs 02/14/20 Unknown Rx tablet mesalamine 1.2 gram tablet,delayed 1.2 gm PO DAILY 02/17/20 Unknown History release ondansetron 4 mg disintegrating 4 mg PO Q6H PRN nausea and 10/27/24 Unknown Rx tablet vomiting #20 tabs Allergy/AdvReac Type Severity Reaction Status Date / Time gluten AdvReac Food Verified 10/27/24 05:36 Allergy lactulose AdvReac Food Verified 10/27/24 05:36 Allergy thimerosal AdvReac Upset Verified 10/27/24 05:36 Stomach Surgical History History of creation of ostomy Social History Smoking Status: Former smoker ROS ROS ED Constitutional Constitutional ED: Reports chills; Denies fever(s) Cardiovascular Cardiovascular: Denies chest pain Respiratory/Chest Respiratory/Chest: Denies cough or dyspnea Gastrointestinal Gastrointestinal: Reports abdominal pain, diarrhea, nausea and vomiting Genitourinary Genitourinary ED: Denies dysuria Musculoskeletal Musculoskeletal: Denies arthralgias or myalgias Neurologic Neurologic: Reports weakness Hematologic/Lymphatic Hematologic/Lymphatic: Denies easy bleeding or easy bruising EXAM Physical Exam Const Vital Signs: 10/27/24 05:36 10/27/24 05:41 10/27/24 07:36 Temperature 97.8 F 97.8 F Temperature Source Oral Oral Pulse Rate 93 98 79 Respiratory Rate 17 17 14 Blood Pressure 128/84 H 111/83 H Blood Pressure Mean 98 92 Pulse Ox 97 100 99 Oxygen Delivery Method Room Air Room Air Room Air Positive well nourished and well developed Constitutional Narrative: Uncomfortable appearing General Appearance ED: well developed HEENT Reports moist mucous membranes Eyes PERRL Neck supple Resp normal respiratory effort and clear to auscultation bilaterally Cardio regular rate and regular rhythm GI GI Narrative: Ileostomy present in the right lower/mid abdomen. Mild diffuse tenderness to palpation. Does not localize. Inspection: Negative for abdominal distention Auscultation: hyperactive bowel sounds Palpation: soft Extremity General Extremety ED: Negative for edema General Extremity: Negative for edema Neuro Sensorium / Orientation: alert, oriented to person, oriented to place and oriented to time Motor Exam: general weakness Psych thought process normal Mood & Affect: anxious Skin no wounds General Skin Exam: Negative for jaundice MDM MDM MDM Narrative Medical decision making narrative: Patient 5 sudden onset of nausea, vomiting, sharp/crampy abdominal pain and increased ostomy output. Differential includes gastroenteritis, viral syndrome, food poisoning dehydration, MANNY, electrolyte abnormality, acute ischemia. Lower suspicion for obstruction given her increased stool output. Vital signs normal. Patient ordered IV fluids, Zofran and morphine for symptom control. Will obtain lab work as well as stool studies. Patient's hemoglobin is elevated 15.1. Suspect she is likely hemoconcentrated. Creatinine is 1.12 which is her baseline. No leukocytosis. No left shift. Patient's magnesium and potassium are normal. No significant electrolyte abnormalities. Lipase is normal. Stool lactoferrin positive. Manger of stool studies pending. Patient is reevaluated resting more comfortably. Will obtain p.o. challenge. Patient reevaluated. Is complain of nausea again. Discussed obtaining imaging at this point. Patient states she like to hold off. Will try dose of Reglan and additional liter of fluid and reevaluate. If patient has improvement of symptoms and tolerates p.o. challenge can be discharged home. Lab Data Labs: Laboratory Results - last 24 hr 10/27/24 05:52 WBC 10.7 RBC 5.14 Hgb 15.1 H Hct 45.6 MCV 88.7 MCH 29.4 MCHC 33.1 RDW Std Deviation 40.8 RDW Coeff of [place] 12.4 Plt Count 294 MPV 10.0 Immature Gran % (Auto) 0.300 Neut % (Auto) 91.1 H Lymph % (Auto) 4.3 L [place] % (Auto) 2.2 Eos % (Auto) 1.5 Baso % (Auto) 0.6 Absolute Neuts (auto) 9.7 H Absolute Lymphs (auto) 0.46 L Nucleated RBC % 0 Sodium 138 Potassium 4.1 Chloride 106 Carbon Dioxide 26.0 Anion Gap 6 BUN 19 H Creatinine 1.12 H Estim Creat Clear Calc 51.67 Est GFR (MDRD) Af Amer 65 Est GFR (MDRD) Non-Af 54 L BUN/Creatinine Ratio 17.0 Glucose 156 H Calcium 10.2 H Magnesium 2.0 Total Bilirubin 0.50 AST 20 ALT 31 Alkaline Phosphatase 82 Total Protein 8.3 H Albumin 4.4 Globulin 3.9 Albumin/Globulin Ratio 1.1 Lipase 35 Discharge Plan Triage Chief Complaint: Nausea/Vomiting/Diarrhea ED Provider: Bria Nino Dx/Rx/DC Orders Clinical Impression: Abdominal pain, vomiting, and diarrhea, Abdominal pain Instructions: ED FOOD POIS or G-ENTERITIS [id number]-naman Prescriptions: New ondansetron 4 mg tablet,disintegrating 4 mg PO Q6H PRN (Reason: nausea and vomiting) Qty: 20 0RF No Action ondansetron 4 MG tablet 4 mg PO Q8H PRN PRN (Reason: Nausea) Qty: 10 0RF mesalamine 1.2 GM tablet 1.2 gm PO DAILY Primary Care Provider: Lazaro Yun Referrals: Lazaro Yun MD [Primary Care Provider] - Print Language: Monegasque
[2024-10-27 06:24] LABS: ALB/GLOB Ratio 1.1 RATIO (0.9-2.4); AST(SGOT) 20 U/L (15-37); Alanine Aminotransfer ALT/SGPT 31 U/L (13-56); Albumin, Serum 4.4 g/dL (3.2-5.0); Alkaline Phosphatase 82 U/L (45-117); Anion Gap 6 (5-15); BUN 19 mg/dL (7-18); Calcium,Total 10.2 mg/dL (8.5-10.1); Chloride 106 mmol/L (98-107); Creatinine, Serum 1.12 mg/dL (0.55-1.02); EST Glomerular Filtration Rate 54 mL/min (>60); Est Glom Filt Rate - Afr Amer 65 mL/min (>60); Estimated Creatinine Clearance 51.67 ml/min; Globulin 3.9 g/dL (2.2-4.2); Glucose 156 mg/dL (74-106); Lipase 35 U/L (13-75); Potassium 4.1 mmol/L (3.5-5.1); Protein, Total 8.3 g/dL (6.4-8.2); Sodium Level 138 mmol/L (136-145)
[2024-10-27 07:36] VITALS: BP 111/83; PULSE 79; RESP 14; O2SAT 99
[2024-10-27] MEDS: proCHLORPERazine 10 MG/2 ML Vial 5 MG IV (08:03)
[2024-10-27 09:07] VITALS: BP 114/75; PULSE 79; RESP 14; O2SAT 98
[2024-10-27 09:18] VITALS: BP 124/78; PULSE 64; RESP 18; TEMP 36.9; O2SAT 99
== END 2024-10-27 09:18 | disposition home or self-care (01) ==
PROVIDERS: Emergency Provider Emergency Medicine; PCP Family Medicine; Visit Provider Emergency Medicine
DX: R10.9 Unspecified abdominal pain (principal); Z93.2 Ileostomy status; Z87.891 Personal history of nicotine dependence; R19.7 Diarrhea, unspecified; R11.2 Nausea with vomiting, unspecified; Z90.49 Acquired absence of other specified parts of digestive tract
CPT/HCPCS: 80053; 83630; 83690; 83735; 85025; 87493; 87506; 96361; 96374; 96375; 99283; A4216; J2405

== ENCOUNTER → 2025-03-20 | Outpatient (CLI) | payer BC, SELFPAY ==
--- NOTE | 2025-03-20 16:08 | BI_ITS ---
EXAM: SCRN MAMM (CAD)W/ELIU BILAT DATE: 03/20/2025 CLINICAL HISTORY: F, Age 54 y/o, SCREENING BREAST CANCER RISK ASSESSMENT: Na TECHNIQUE: Bilateral screening digital breast tomosynthesis with 2D and 3D images. Computer aided detection. COMPARISON: Prior exam(s) were compared FINDINGS: TISSUE DENSITY: The breast tissue is heterogenously dense, which may obscure small masses. Bilateral Breast Mammographic Findings: No suspicious masses, calcifications or other abnormalities are identified. BI/SCRN MAMM (CAD)W/ELIU BILAT IMPRESSION: OVERALL FINAL ASSESSMENT: BIRADS 1 NEGATIVE RECOMMENDATION: Routine annual follow-up in 1 Year A letter with findings and recommendations will be mailed to the patient. Reading Location: [id number]
== END | disposition home or self-care (01) ==
PROVIDERS: PCP Family Medicine; Referring Provider Obstetrics & Gynecology Gynecology; Visit Provider Obstetrics & Gynecology Gynecology
DX: Z12.31 Encounter for screening mammogram for malignant neoplasm of breast (principal)
CPT/HCPCS: 77063; 77067